=== PATIENT | female | born 1960 | race Caucasian/White ===

== ENCOUNTER → 2021-01-20 08:26 | Outpatient (CLI) | payer BC, SELFPAY ==
--- NOTE | ~2021-01-20 | CT_ITS ---
EXAMINATION: CT brain wo con DATE: 01/20/2021 09:11 INDICATION: Head injury. Headache. TECHNIQUE: Computed tomography (CT) of the head was performed without intravenous contrast. The mA wa s adjusted according to patient size. Iterative reconstruction technique was employed. The dose-lengt h product was 674.51 mGy-cm. COMPARISON: None FINDINGS: There is no intracranial hemorrhage, acute infarction, or abnormal intracranial mass lesion . The ventricles are normal in size. The orbits are normal. There are fractures of the nasal bones. T here is mild mucosal thickening in the ethmoid sinuses. The mastoid air cells are normal. IMPRESSION: 1. Normal brain. 2. Fractures of the nasal bones. Reviewed, dictated and finalized at location A. 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
== END ==
PROVIDERS: PCP Internal Medicine; Visit Provider Nurse Practitioner Family
DX: S02.2XXA Fracture of nasal bones, initial encounter for closed fracture (principal)
CPT/HCPCS: 70450

== ENCOUNTER → 2021-01-28 12:31 | Outpatient (CLI) | payer BC, SELFPAY ==
--- NOTE | ~2021-01-28 | XR_ITS ---
EXAMINATION: XR hand RT min 3V DATE: 01/28/2021 12:59 INDICATION: Right hand pain TECHNIQUE: Posteroanterior, oblique and lateral views of the right hand were obtained. COMPARISON: None. FINDINGS: Cystic change at the ulnar side of the proximal lunate likely secondary to ulnocarpal impaction given the 2 mm ulnar positive variance. Alignment is otherwise normal. No fracture. Minimal to mild osteoa rthritis at the interphalangeal joints characterized by slight nonuniform joint space narrowing and c omparison tiny marginal osteophytes most prominent at the first interphalangeal and at the distal int erphalangeal joints. No erosions. Soft tissues are unremarkable. IMPRESSION: 1. No acute osseous abnormality. 2. 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 3. Cystic change at the ulnar side of the lunate with 2 mm ulnar positive variance suggesting ulnocar pal impaction. Reviewed, dictated and finalized at location B. IMPRESSION: 1. No acute osseous abnormality. 2. 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 3. Cystic change at the ulnar side of the lunate with 2 mm ulnar positive varia nce suggesting ulnocarpal impaction.
== END ==
PROVIDERS: PCP Internal Medicine; Visit Provider Internal Medicine
DX: S69.91XA Unspecified injury of right wrist, hand and finger(s), initial encounter (principal); M18.11 Unilateral primary osteoarthritis of first carpometacarpal joint, right hand
CPT/HCPCS: 73130

== ENCOUNTER 2021-09-30 14:05 | Emergency (ER) | payer BC, SELFPAY ==
--- NOTE | ~2021-09-30 | CT_ITS ---
EXAMINATION: CT abdomen pelvis wo con DATE: 09/30/2021 15:50 INDICATION: Hematuria, dysuria TECHNIQUE: Computed tomography (CT) of the abdomen and pelvis was performed without intravenous contr ast. Automated exposure control and iterative reconstruction technique were employed. Exam dose: 177 .21 mGy-cm total exam DLP. COMPARISON: None. FINDINGS: Peripheral left lower lobe calcified pulmonary granuloma. The lung bases are clear of infil trate or consolidation. Normal heart size. No pericardial or pleural effusion. Small sliding hiatal hernia. No hepatic space-occupying mass lesion is detected. There is heterogeneous density of the gallbladder contents; cholelithiasis is not excluded. Consider gallbladder ultrasound for more sensitive evaluation of the gallbladder if clinically appropriate. No gallbladder wall thickening or pericholecystic fluid or fat stranding. No bile duct or pancreatic du ct dilatation. Normal splenic size. No pancreatic mass lesion or calcification. Normal morphology of the adrenal glands. No renal mass lesion is noted on this limited noncontrast examination. Moderately prominent extrarena l pelves. No ureteral calculus or hydroureteronephrosis is evident. The urinary bladder, uterus and adnexal are as are unremarkable. Normal caliber of the abdominal aorta. No intraperitoneal or retroperitoneal or pelvic mass lesion or adenopathy or ascites. Diverticulosis of the sigmoid colon; no CT evidence of diverticulitis. Normal appendix. No bowel obstruction, bowel wall thickening, pneumatosis or intraperitoneal free air . Small fat-containing umbilical hernia. There are no suspicious osteolytic or osteoblastic lesions. IMPRESSION: Small sliding hiatal hernia Cannot exclude cholelithiasis; consider gallbladder ultrasound for this purpose as clinically appropr iate Diverticulosis of sigmoid colon; no CT evidence of diverticulitis No urolithiasis or urinary tract obstruction is detected Reviewed, dictated and finalized at [facility]. Reviewed, dictated and finalized at location A. 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
[2021-09-30 14:23] VITALS: BP 147/83; PULSE 100; RESP 14; TEMP 37.1; O2SAT 100
[2021-09-30 14:36] LABS: Basophils Absolute Auto 0.1 K/mm3 (0.0-0.1); Basophils Percent Auto 0.6 % (0.2-1.2); Eosinophils Absolute Auto 0.1 K/mm3 (0-0.3); Eosinophils Percent Auto 0.6 % (0-4.4); Hematocrit 42.4 % (37.0-47.0); Hemoglobin 13.8 g/dL (12.0-15.0); Immature Granulocyte Absolute 0.03 K/mm3 (0.00-0.031); Immature Granulocyte Percent A 0.2 % (0-0.5); Lymphocytes Absolute Auto 1.04 K/mm3 (0.9-3.2); Lymphocytes Percent Auto 8.4 % (18.3-44.2); Mean Corpuscular HGB Conc 32.5 g/dl (32-36); Mean Corpuscular Hemoglobin 30.7 pg (26-34); Mean Corpuscular Volume 94.2 fl (80-100); Mean Platelet Volume 9.1 fl (7.4-10.4); Monocytes Absolute Auto 0.7 K/mm3 (0.1-0.6); Monocytes Percent Auto 5.7 % (2.6-8.5); Neutrophils Absolute Auto 10.5 K/mm3 (1.3-6.7); Neutrophils Percent Auto 84.5 % (45.5-73.1); Platelet Count Result 293 k/mm3 (150-375); Red Cell Distribution Width 13.2 % (11.5-14.5); White Blood Count 12.4 K/mm3 (4.5-10.0)
[2021-09-30 14:49] LABS: Alanine Aminotransferase 17 U/L (4-35); Albumin Level 4.8 g/dL (3.5-5.1); Alkaline Phosphatase 55 U/L (38-126); Anion Gap 11 mmol/L (8-16); Aspartate Amino Transferase 26 U/L (14-36); Bilirubin,Total 0.4 mg/dL (0.2-1.3); Blood Urea Nitrogen 7 mg/dL (7-17); Calcium 9.4 mg/dL (8.4-10.2); Carbon Dioxide 23 mmol/L (22-30); Chloride 106 mmol/L (98-107); Estimated CRCL calculation 68 ml/min; Estimated Glomerular Filt Rate > 60; Glucose 106 mg/dL (65-110); Potassium 3.5 mmol/L (3.4-5.0); Sodium 140 mmol/L (137-145)
[2021-09-30 14:52] LABS: Add Urine Microscopic? YES; Appearance Urine Cloudy (Clear); Bilirubin Urine Negative (Negative); Blood Urine 3+ (Negative); Color Urine Yellow (Yellow); Glucose Urine UA Negative (Negative); Ketones Urine Negative (Negative); Leukocyte Esterase Ur 3+ LEU/UL (Negative); Nitrate Urine Negative (Negative); Protein Urine 1+ mg/dL (Negative); RBC Urine 0-2 /hpf (0-2); Urobilinogen Urine Negative mg/dL (<2.0)
[2021-09-30 14:54] VITALS: BP 166/88; PULSE 85; TEMP 37.8; O2SAT 100
[2021-09-30 14:56] LABS: Specific Grav Ur 1.002 (1.001-1.035)
--- NOTE | 2021-09-30 15:54 | ED.FEMALEGU ---
HPI - Female Genitourinary General Chief complaint: Urogenital-Female Stated complaint: poss kidney stone Time Seen by Provider: 09/30/21 14:53 Source: patient and RN notes reviewed Mode of arrival: ambulatory Limitations: no limitations History of Present Illness HPI Narrative: This is a 61 year old female who presents for evaluation of possible kidney stone. PAtient reports today she develop burning with urinary and increased urinary frequency. She also reports passing blood in her urine. She is now developing lower abdominal pain with nausea. She is concerned that she may have a kidney stone. She also has been having subjective fever and she has low grade fever in ER. She denies history of vomiting, back pain. She has not taken anything for her symptoms. Related Data Allergies Allergy/AdvReac Type Severity Reaction Status Date / Time erythromycin base Allergy Unknown Verified 11/18/17 21:20 tetracycline Allergy Unknown Verified 11/18/17 21:20 Review of Systems Review of Systems: All systems reviewed & are unremarkable except as noted in HPI and below PMFSH Past Medical History Medical History (Updated 09/30/21 @ 16:43 by Cele Burnett MD) GERD (gastroesophageal reflux disease) Surgical History Surgical History (Updated 09/30/21 @ 16:39 by Cele Burnett MD) H/O section Social History Social History (Updated 09/30/21 @ 16:40 by Cele Burnett MD) Smoking status: Never smoker Exam Const: General: no acute distress and alert Orientation/consciousness: patient oriented x3 Eyes: EOM: EOMs intact bilaterally Chest: Chest palpation & inspection: normal inspection of the chest Resp: Effort & Inspection: normal respiratory effort and no retractions Auscultation: clear to auscultation bilaterally Cardio: Rate: regular rate Rhythm: regular rhythm Heart sounds: no murmurs GI: GI Palp: Yes Soft to palpation, No Tenderness to palpation present (GI) and No Guarding due to palpation present (GI) Auscultation: normal bowel sounds : General: Yes no CVA tenderness Skin: General skin exam: normal color Rashes: no rashes Neuro: General: patient oriented x3, moves all extremities and CN's II-XI intact bilaterally Psych: Mental Status: mental status grossly normal Affect: normal affect Course Reevaluation(s) Reevaluation #1: I Discussed labs with patient and CT. patient is symptomatic although UA is not impressive. Ct scan did not show kidney stone so she will be discharged with antibiotics. I Also discussed gallstones possibly seen on CT . Date: 09/30/21 Time: 16:41 Vital Signs Vital signs: Vital Signs Temperature 98.7 F 09/30/21 14:23 Pulse Rate 100 09/30/21 14:23 Respiratory Rate 14 09/30/21 14:23 Blood Pressure 147/83 H 09/30/21 14:23 Pulse Oximetry 100 09/30/21 14:23 Temperature 99.1 F 09/30/21 16:59 Pulse Rate 85 09/30/21 14:54 Respiratory Rate 14 09/30/21 14:23 Blood Pressure 166/88 H 09/30/21 14:54 Pulse Oximetry 100 09/30/21 14:54 MDM - Female Genitourinary Lab Data Attestation: I reviewed the patient's lab results. Result diagrams: 09/30/21 14:28 09/30/21 14:28 Labs: Lab Results 09/30/21 09/30/21 09/30/21 Range/Units 14:28 14:28 14:28 WBC 12.4 H (4.5-10.0) K/mm3 RBC 4.50 (4.2-5.4) M/mm3 Hgb 13.8 (12.0-15.0) g/dL Hct 42.4 (37.0-47.0) % MCV 94.2 (80-100) fl MCH 30.7 (26-34) pg MCHC 32.5 (32-36) g/dl RDW 13.2 (11.5-14.5) % Plt Count 293 (150-375) k/mm3 MPV 9.1 (7.4-10.4) fl Immature Gran % (Auto) 0.2 (0-0.5) % Neut % (Auto) 84.5 H (45.5-73.1) % Lymph % (Auto) 8.4 L (18.3-44.2) % Chambers % (Auto) 5.7 (2.6-8.5) % Eos % (Auto) 0.6 (0-4.4) % Baso % (Auto) 0.6 (0.2-1.2) % Lymph # (Auto) 1.04 (0.9-3.2) K/mm3 Chambers # (Auto) 0.7 H (0.1-0.6) K/mm3 Eos # (Auto) 0.1 (0-0.3) K/mm3 Baso # (Auto)
[2021-09-30] MEDS: ACETAMINOPHEN 500 MG TABLET 1000 MG PO (16:12)
[2021-09-30] MEDS: CEPHALEXIN 500 MG CAPSULE PO (16:56)
[2021-09-30 16:59] VITALS: TEMP 37.3
== END 2021-09-30 17:00 | disposition home or self-care (01) ==
PROVIDERS: Emergency Medicine; Emergency Provider General Practice; PCP Internal Medicine
DX: N39.0 Urinary tract infection, site not specified (principal); K21.9 Gastro-esophageal reflux disease without esophagitis
CPT/HCPCS: 36415; 74176; 80053; 81001; 85025; 87077; 87086; 87186; 99284; A9270

== ENCOUNTER 2022-10-14 04:08 | Emergency (ER) | payer OTHER, SELFPAY ==
[2022-10-14 04:15] VITALS: BP 177/89; PULSE 72; RESP 18; TEMP 36.6; O2SAT 100
--- NOTE | 2022-10-14 05:23 | ED.GENADULT ---
HPI - General Adult General Chief complaint: Recheck/Abnormal Lab/Rx Stated complaint: elevated bp Time Seen by Provider: 10/14/22 04:55 History of Present Illness HPI narrative: This is a 62-year-old female presenting ED with chief complaint of elevated blood pressures. The patient has been taking her blood pressure at home repeatedly throughout the day. She notes that she has had multiple elevated blood pressure readings approximately 170/90. She notice that when she takes them she becomes anxious and then read takes them and her blood pressure increases. She is currently asymptomatic and is not describing chest pain, difficulty breathing, abdominal pain, numbness tingling or weakness a extremity. Patient admits having history of anxiety. She would like to follow-up with her primary care physician tomorrow. Related Data Allergies Allergy/AdvReac Type Severity Reaction Status Date / Time erythromycin base Allergy Unknown Verified 11/18/17 21:20 tetracycline Allergy Unknown Verified 11/18/17 21:20 Review of Systems Review of Systems: CONSTITUTIONAL: Denies night sweats. EYES: No eye pain ENT: Denies rhinorrhea CARDIOVASCULAR: Denies palpitations RESPIRATORY: Denies hemoptysis GASTROINTESTINAL: Denies hematemesis GENITOURINARY: Denies hematuria. SKIN: Denies rash MUSCULOSKELETAL: Denies myalgia. NEUROLOGIC: Denies weakness. PSYCHIATRIC: Denies delusions PMFSH Past Medical History Medical History GERD (gastroesophageal reflux disease) Surgical History Surgical History H/O section Social History Social History Smoking status: Never smoker Exam Narrative: APPEARANCE: No apparent distress. Head: atraumatic. EYES: EOMI, NOSE: Atraumatic NECK: Trachea midline RESPIRATORY: No increased rate of breathing, clear to auscultation bilaterally CARDIOVASCULAR: RRR, ABDOMINAL: Non-distended, no guarding or rebound MUSCULOSKELETAl: No obvious deformities NEURO: Alert. Cranial nerves 2-12 grossly intact. Sensation light touch, motor function cerebellar function intact for 4 extremities. Gait exam was normal. SKIN:: Warm, dry. Normal color PSYCHIATRIC: Normal affect Course Vital Signs Vital signs: Vital Signs Temperature 97.8 F 10/14/22 04:15 Pulse Rate 72 10/14/22 04:15 Respiratory Rate 18 10/14/22 04:15 Blood Pressure 177/89 H 10/14/22 04:15 Pulse Oximetry 100 10/14/22 04:15 Oxygen Delivery Room Air 10/14/22 04:15 Temperature 97.8 F 10/14/22 04:15 Pulse Rate 72 10/14/22 04:15 Respiratory Rate 18 10/14/22 04:15 Blood Pressure 177/89 H 10/14/22 04:15 Pulse Oximetry 100 10/14/22 04:15 Oxygen Delivery Room Air 10/14/22 04:15 Medical Decision Making MDM Narrative Medical decision making narrative: This is a very pleasant 62-year-old female presenting to ED with elevated blood pressure. Patient has a history of anxiety and has been concerned about her blood pressure in general. She is currently asymptomatic. She would like to follow-up with her primary care physician in the next 1-2 days which I believe is an appropriate decision. Patient will be discharged. She can return emergency department if she develops chest pain, difficulty breathing, numbness tingling weakness to any extremity. Vital Signs Vital Signs: Vital Signs Temperature 97.8 F 10/14/22 04:15 Pulse Rate 72 10/14/22 04:15 Respiratory Rate 18 10/14/22 04:15 Blood Pressure 177/89 H 10/14/22 04:15 Pulse Oximetry 100 10/14/22 04:15 Oxygen Delivery Room Air 10/14/22 04:15 Temperature 97.8 F 10/14/22 04:15 Pulse Rate 72 10/14/22 04:15 Respiratory Rate 18 10/14/22 04:15 Blood Pressure 177/89 H 10/14/22 04:15 Pulse Oximetry 100 10/14/22 04:15 Oxygen Delivery Room Air 10/14/22 04:15
== END 2022-10-14 05:53 | disposition home or self-care (01) ==
PROVIDERS: Emergency Provider Emergency Medicine; PCP Internal Medicine
DX: I10 Essential (primary) hypertension (principal); F41.9 Anxiety disorder, unspecified; K21.9 Gastro-esophageal reflux disease without esophagitis
CPT/HCPCS: 99281

== ENCOUNTER 2024-05-18 11:03 | Emergency (ER) | payer OTHER, SELFPAY ==
--- NOTE | ~2024-05-18 | CT_ITS ---
EXAMINATION: CT brain wo con DATE: 05/18/2024 12:28 INDICATION: Head pressure. Lack of coordination. Fall. TECHNIQUE: Computed tomography (CT) of the head was performed without intravenous contrast. The mA wa s adjusted according to patient size. Iterative reconstruction technique was employed. The dose-lengt h product was 605.33 mGy-cm. COMPARISON: Head CT 01/20/2021 FINDINGS: There is no intracranial hemorrhage, acute infarction, or abnormal intracranial mass lesion . The ventricles are normal in size. There is mild mucosal thickening in the ethmoid sinuses. The mas toid air cells are normal. IMPRESSION: 1. Normal brain. Reviewed, dictated and finalized at location A. IMPRESSION: 1. Normal brain.
--- NOTE | 2024-05-18 12:09 | PC.NURSE ---
Pt c/o right parietal head pain after falling backwards 4 days ago. Denies visual changes. Pupils equal & reactive. Pt reports of sensation of pressure & soreness to touch to area.
--- NOTE | 2024-05-18 12:41 | ED.FALL ---
HPI - Fall General Chief Complaint: Fall Stated Complaint: fall on Tuesday, hit head Time Seen by Provider: 05/18/24 12:01 History of Present Illness HPI Narrative: Patient is a 64-year-old female who presents to the emergency department this afternoon complaining of some right-sided head pressure. Patient states that on Tuesday she fell backwards after tripping and is not sure if she hit the back of her head on a dresser or on the ground. Patient states that she felt but continued to have some head pressure worse on the right side. Patient initially thought that this was due to a mild concussion, however, since her symptoms persisted she wanted to come here and be further evaluated due to concern for a head. Patient discussed this case with her primary care physician who prompted her to come to the ED for a CT head. She denies any additional symptoms or concerns at this time. Related Data Home Medications Medication Instructions Recorded Confirmed alprazolam 0.25 mg tablet 0.25 mg PO PRN anxiety 01/21/23 01/21/23 pantoprazole 20 mg tablet,delayed 20 mg PO 01/21/23 01/21/23 release Allergies Allergy/AdvReac Type Severity Reaction Status Date / Time erythromycin base Allergy Unknown Nausea Verified 01/21/23 08:29 tetracycline Allergy Unknown Nausea Verified 01/21/23 08:29 Review of Systems Review of Systems: All systems are reviewed and are negative unless stated otherwise in the HPI. [facility] Past Medical History Medical History GERD (gastroesophageal reflux disease) Surgical History Surgical History H/O section Social History Social History Smoking status: Never smoker Lack of Transportation: No Lack of Food: Never True Current Housing: I Have Housing Concerned About Future Housing: No Difficulty Paying Gas/Electric Bills: No Difficulty Paying for Meds: No Currently Unemployed: No Education: Trade/Vocational Certificate Difficulty w/ Childcare or Family Care: No Exam Narrative: General: Alert, awake, afebrile, in no acute distress. HEENT: PERRL, no rhinorrhea, no post nasal drip, oropharynx clear. Cardiovascular: Regular rate and rhythm, no murmurs, rubs or gallops, no peripheral edema. Respiratory: Clear to auscultation bilaterally, no tachypnea, no wheezing, no rhonchi, no rubs, no respiratory distress. Abdomen: Soft, nontender, nondistended, no rebound, no guarding, no peritoneal signs. Musculoskeletal: No joint swelling or deformity, normal muscle tone. Skin: No rashes or petechia, no signs of infection. Neurological: Alert and oriented to person, place, and time. Follows all commands. No focal deficits, speech is clear and fluent. MDM - Fall MDM Narrative Medical decision making narrative: The patient was evaluated by myself in the emergency department. History is obtained from patient who is an independent historian and physical exam was performed. External medical records were reviewed at this time. Imaging studies obtained included CT brain without IV contrast which was independently interpreted by me revealing no acute process, which is pending final radiology interpretation. Differential diagnosis considerations include concussion, intracranial hemorrhage and cephalgia. Comorbidities impacting this visit include none. I have evaluated and discussed social determinants of health with the patient that could potentially impact subsequent diagnosis and treatment plans. On repeat assessment of the patient, reevaluation revealed that the patient is doing well and is in no acute distress. Patient symptoms have improved since she arrived to our emergency department. Repeat vital signs were all reviewed and noted to be stable. Differential diagnosis and treatment plan were discussed with the patien
== END 2024-05-18 13:15 | disposition home or self-care (01) ==
LOC: ANHED 12:57
PROVIDERS: Emergency Provider Emergency Medicine; PCP Family Medicine
DX: S09.90XA Unspecified injury of head, initial encounter (principal); K21.9 Gastro-esophageal reflux disease without esophagitis; F41.9 Anxiety disorder, unspecified; Z79.899 Other long term (current) drug therapy; W01.0XXA Fall on same level from slipping, tripping and stumbling without subsequent striking against object, initial encounter
CPT/HCPCS: 70450; 99284

== ENCOUNTER 2024-10-17 13:36 | Outpatient (CLI) | payer OTHER, SELFPAY ==
--- NOTE | ~2024-10-17 | CT_ITS ---
CT of the Abdomen and Pelvis: Indication: Abdominal pain Technique: 2.5 mm axial scans were obtained through the abdomen and pelvis following intravenous adm inistration of 100 cc of Omnipaque 350. Dose reduction technique was used on this scan by utilizing a utomated exposure control and iterative reconstruction technique. The dose-length product (DLP) was 2 83.00 mGy-cm. COMPARISON: 09/30/2021 Findings: Scans through the lung bases demonstrates stable pleural-based nodule at the left lung bas e (axial image 31). The liver, spleen, pancreas, gallbladder, adrenals and kidneys are within normal limits. No evidence of aortic aneurysm. No lymphadenopathy. No bowel obstruction or bowel wall thickening. There is no evidence to suggest acute appendicitis. Images through the pelvis were performed. Urinary bladder unremarkable. No pelvic mass seen. No ascit es. Impression: No acute abnormalities seen. Stable pleural-based nodule left lung base. Reviewed, dictated and finalized at [facility]. NT ACQUISITION ASSOCIATE Impression: No acute abnormalities seen. Stable pleural-based nodule left lung base.
--- NOTE | ~2024-10-17 | CT_ITS ---
CT Scan of the Chest without Contrast: Clinical Indication: Pulmonary nodule Technique: Contiguous sections were acquired throughout the chest without intravenous contrast. Dose reduction technique was used on this scan by utilizing automated exposure control and iterative recon struction technique. The dose-length product (DLP) was 38.84 mGy-cm. COMPARISON: 09/30/2021 Findings: There is no evidence of any significant mediastinal, hilar or axillary lymphadenopathy. The mediastin al soft tissues appear normal. There is no evidence of pleural or pericardial effusion. Stable 7 mm pleural-based nodule left lower lobe. 4 mm left upper lobe pulmonary nodule present (axia l image 49). Images through the upper abdomen reveal no abnormalities. Impression: 4 mm left lower lobe pulmonary nodule, most likely benign. Consider one-year follow-up for a high-ri sk patient. Stable 7 mm left lower lobe pleural-based nodule since 2020. Reviewed, dictated and finalized at [facility]. E GROUP MANAGER Impression: 4 mm left lower lobe pulmonary nodule, most likely benign. Consider one-year fo llow-up for a high-risk patient. Stable 7 mm left lower lobe pleural-based nodule since 2020.
[2024-10-17 14:16] LABS: Estimated Glomerular Filt Rate > 60
== END 2024-10-17 13:37 | disposition home or self-care (01) ==
PROVIDERS: PCP Family Medicine; Visit Provider Family Medicine
DX: R91.1 Solitary pulmonary nodule (principal); R10.822 Left upper quadrant rebound abdominal tenderness; R10.9 Unspecified abdominal pain; Z80.8 Family history of malignant neoplasm of other organs or systems
CPT/HCPCS: 71250; 74177; Q9967

== ENCOUNTER 2025-06-07 07:22 | Outpatient (CLI) | payer MEDICARE, SELFPAY ==
--- NOTE | ~2025-06-07 | DEXA_ITS ---
Bone Density Report Name: FARNAZ LACKEY Age: 65 Sex: Female Ethnicity: White Date of : 1960 Indication: postmenopausal; screening for osteoporosis; height loss; Referring Provider: KRISTOPHER, ELDER Caceres Study: Bone densitometry was performed. Exam Date: June 07, 2025 Accession number: [id number] Bone Density: Region BMD T-score Z-score Classification AP Spine(L1-L4) 0.742 -2.8 -0.9 Osteoporosis Femoral Neck (Left) 0.544 -2.7 -1.2 Osteoporosis Total Hip (Left) 0.628 -2.6 -1.3 Osteoporosis Femoral Neck (Right) 0.574 -2.5 -0.9 Osteoporosis Total Hip (Right) 0.662 -2.3 -1.0 Osteopenia Total Hip Mean 0.645 -2.5 -1.2 Osteopenia World Health Organization criteria for BMD impression classify patients as: Normal (T-score at or above -1.0), Osteopenia (T-score between -1.0 and -2.5), or Osteoporosis (T-score at or below -2.5). 10-year Fracture Risk: FRAX not reported because: Some T-score for Spine Total or Hip Total or Femoral Neck at or below -2.5 Treated for osteoporosis Clinical Information Provided by Patient: Is being treated for osteoporosis Has used the following medications: Prolia (i.e. denosumab) Patient maximum height was 63 Menopause Age: 47 No regular weight bearing exercise Drinks caffeinated beverages Onset of menses at age 11 Number of children 2 Impression: The patient has osteoporosis, based on the Total Spine T-score. Discussion: It is important to ask patients whether they are taking their medications and to encourage continued and appropriate compliance with their osteoporosis therapies to reduce fracture risk. It is also important to review their risk factors and encourage appropriate calcium and vitamin D intakes, exercise, fall prevention and other lifestyle measures. Follow-Up: Consider a repeat BMD and Vertebral Fracture Assessment (VFA) exam in 2 years or sooner if medically necessary, to reassess this patient's status. Reported by: MARÍA on 06/07/2025 8:01:00 AM. Reviewed, dictated and finalized at location A.
--- OUTSIDE RECORDS SUMMARY | 2025-06-07 07:29 | XMS_ITS | Encounter Summary ---
Author Organization [facility] Healthcare Address [address] [place] [address] Care Team Providers Care Bucket Turner Name Role Phone Ang Cunningham MD Primary Care Provider [phone] Horacio Adams MD Primary Care Provider Jose Antonio Bell MD Primary Care Provider [phone] Klever Pizarro MD Unavailable Gris Haque DO Unavailable [phone] Reason for Referral * Diagnostic Imaging (Routine) - Closed Specialty Diagnoses / Procedures Referred By Contac t Referred To Contact Diagnoses Liver lesion Procedures US [facility] Karla Miramontes DO Phone: tel: fax: [address] [address] Referral ID Status Reason Start Date Expiration Date Visits Re quested Visits Authorized [id number] Closed 08/01/2018 02/10/2020 1 1 Encounter Details Date Type Department Care Team (Late st Contact Info) Description 08/01/2018 Community Orders [facility] EpicCare Link Karla Miramontes DO [address] [facility] [address] [place] [address] Liver lesion (Primary Dx) Social History Tobacco Use Types Packs/Day Years Used Date Smoking Tobacco: Never Assessed Comments Unknown Sex and Gender Information Value Date Recorded Sex Assigned at Not on file 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 1.1 x 0.9 cm lesion within hepatic segment 2 whose appearance is not typical for a hemangioma. In the absence of a history of neoplasm, lesion may represent focal nodular hyperplasia. The appearance is not typical for an adenoma nor is it typical on the CT. This lesion can be followed with repeat ultrasound, or MRI if a definitive diagnosis is desired. 2. The liver is otherwise normal in echogenicity and contour. A simple 5 mm hepatic cyst is noted within the right liver. Electronically signed by: Ann Crooks M.D. Narrative 08/07/2018 2:06 PM CDT EXAMINATION: LIMITED ABDOMINAL SONOGRAM HISTORY: 58-year-old woman with incidental hepatic lesions identified on recent CT. Patient reports a family history of pancreatic cancer. COMPARISON: CT abdomen dated 07/28/2018 FINDINGS: Liver: The liver is normal in size. The echotexture is normal. The echogenicity is normal. There is no surface nodularity. A 5 x 4 mm simple hepatic cyst is noted within the right liver, corresponding to the segment 7/[address] prior [address]. A subtle 1.1 x 0.9 cm lesion within hepatic segment 2 is noted that corresponds to the homogeneous hyperenhancing lesion on the prior CT. This lesion is hypoechoic to near isoechoic with no internal vascularity on color Doppler Gallbladder: The gallbladder is normal in size. There are no stones or sludge within the gallbladder. There is no gallbladder wall thickening. The gallbladder wall measures 3 mm. Bile Duct: There is no intrahepatic bile duct dilatation. The common duct measures 4 mm, 4 mm, and 2 mm in the proximal, mid and distal segments respectively. Right Kidney: There is no hydronephrosis in the visualized portions of the right kidney. Pancreas: The visualized portions of the pancreas are normal. Inferior vena cava: The proximal IVC is normal. Procedure Note Ann Crooks MD - 08/07/2018 EXAMINATION: LIMITED ABDOMINAL SONOGRAM HISTORY: 58-year-old woman with incidental hepatic lesions identified on recent CT. Patient reports a family history of pancreatic cancer. COMPARISON: CT abdomen dated 07/28/2018 FINDINGS: Liver: The liver is normal in size. The echotexture is normal. The echogenicity is normal. There is no surface nodularity. A 5 x 4 mm simple hepatic cyst is noted within the right liver, corresponding to the segment 7/[address] seen [address] prior [address]. A subtle 1.1 x 0.9 cm lesion within hepatic segment 2 is noted that corresponds to the homogeneous hyperenhancing lesion on the prior CT. This lesion is hypoechoic to near isoechoic with no internal vascularity on color Doppler Gallbladder: The gallbladder is normal in size. There are no stones or sludge within the gallbladder. There is no gallbladder wall thickening. The gallbladder wall measures 3 mm. Bile Duct: There is no intrahepatic bile duct dilatation. The common duct measures 4 mm, 4 mm, and 2 mm in the proximal, mid and distal segments respectively. Right Kidney: There is no hydronephrosis in the visualized portions of the right kidney. Pancreas: The visualized portions of the pancreas are normal. Inferior vena cava: The proximal IVC is normal. IMPRESSION: 1. 1.1 x 0.9 cm lesion within hepatic segment 2 whose appearance is not typical for a hemangioma. In the absence of a history of neoplasm, lesion may represent focal nodular hyperplasia. The appearance is not typical for an adenoma nor is it typical on the CT. This lesion can be followed with repeat ultrasound, or MRI if a definitive diagnosis is desired. 2. The liver is otherwise normal in echogenicity and contour. A simple 5 mm hepatic cyst is noted within the right liver. Electronically signed by: Ann Crooks M.D. us Karla Miramontes DO [facility] [place] PROCEDURES Final Result documented in this encounter Visit Diagnoses Diagnosis Liver lesion- Primary Other specified disorders of liver Liver lesion Other specified disorders of liver documented in this encounter Additional Health Concerns Infection Onset Date Last Indicated Resolved Time COVID: Suspected 06/05/2022 06/05/202206/05/2022 11:59 AM CDT COVID: Suspected 08/04/2022 08/04/2022 08/04/2022 9:19 AM CDT COVID: Suspected 08/04/2022 08/04/2022 08/04/2022 5:31 PM CDT COVID: Suspected 08/30/2022 08/30/2022 08/30/2022 10:33 PM CDT COVID: Suspected 10/11/2022 10/11/2022 10/11/2022 12:04 PM AMERICANIZATION TEACHER COVID: Suspected 10/11/2022 10/11/2022 10/11/2022 4:10 PM AMERICANIZATION TEACHER COVID: Suspected 10/08/2024 10/08/2024 10/08/2024 9:16 AM AMERICANIZATION TEACHER documented as of this encounter Care Teams Bucket Turner Relationship Specialty Start Date End Date Ang Cunningham MD [address] [facility] [address] [place] [address] PCP - General 01/21/17 10/16/20 Horacio Adams MD [address] [facility] [address] [place] [address] PCP - General Internal Medicine 10/17/20 03/28/24 Jose Antonio Bell MD [address] [place] [address] PCP - General Family Medicine 03/29/24 Klever Pizarro MD [address] [facility] [address] [place], [place] [id number] Referring Physician Gastroenterology 03/29/24 Gris Haque DO [address] [facility] [address] [place] [phone] Consulting Physician Obstetrics and Gynecology 03/29/24 documented as of this encounter
--- OUTSIDE RECORDS SUMMARY | 2025-06-07 07:29 | XMS_ITS | Encounter Summary ---
Author Organization [facility] Healthcare Address [address] [place] [address] Care Team Providers Care Process Development Technician Name Role Phone Ang Cunningham MD Primary Care Provider [phone] Horacio Adams MD Primary Care Provider [phone] Jose Antonio Bell MD Primary Care Provider [phone] Klever Pizarro MD Unavailable Gris Haque DO Unavailable [phone] Reason for Referral * Diagnostic Imaging (Routine) - Closed Specialty Diagnoses / Procedures Referred By Contangela scales Referred To Contact Radiology Diagnoses Lung nodule Procedures CT Chest WO Contrast Horacio Adams MD [address] [facility] [address] [place] [address] Phone: tel: fax: [address] [address] Referral ID Status Reason Start Date Expiration Date Visits Re quested Visits Authorized [id number] Closed 05/14/2020 11/23/2021 1 1 Encounter Details Date Type Department Care Team (Late st Contact Info) Description 05/14/2020 Orders Only Internal Medicine Horacio Adams MD [address] [facility] [address] [place] [address] Lung nodule (Primary Dx) Social History Tobacco Use Types Packs/Day Years Used Date Smoking Tobacco: Never Smokeless Tobacco: Never Alcohol Use Standard Drinks/Week Comments Yes 0 (1 standard drink = 0.6 oz pur e alcohol) 2x/week Comments Unknown Sex and Gender Information Value Date Recorded Sex Assigned at Not on file 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 The left lower lobe pulmonary nodule associated with the pleura is stable dating back to 07/31/2018. Dictated by: Parker Bhardwaj M.D. The radiology attending physician has personally reviewed this study, and had reviewed and/or edited this written report and agrees with it. Electronically signed by: Eddie Singer M.D., MPH Narrative 05/27/2020 2:55 PM CDT EXAMINATION: CT of the Chest without intravenous contrast HISTORY: Pulmonary nodule follow-up TECHNIQUE: Transaxial computed tomography of the chest was performed without intravenous contrast according to the low-dose CT protocol. COMPARISON: A prior CT dated 06/13/2019. FINDINGS: There is biapical pleural parenchymal scarring. There is no pneumothorax, pulmonary edema, pneumonic consolidation, or pleural effusion. Mild bronchial wall thickening likely represent chronic bronchitis. 5 mm pulmonary nodule in the left upper lobe on slice position 109.5 is stable. 3 mm pulmonary nodule in the left oblique fissure is stable on slice position 37.5. 6 mm pulmonary nodule in the left lung base associated with the pleura on slice position -31.[address] abdomen dated 07/31/2018 where it could be seen on lung bases. Mild groundglass is noted within the medial basal segment of the right lower lobe and may indicate some mild fibrosis. The visualized thyroid gland is normal. There is no supraclavicular, axillary, mediastinal or hilar lymphadenopathy. Heart size is normal with no pericardial effusion. There is a small hiatal hernia. The visualized low-dose evaluation of the upper abdomen appears unremarkable. Procedure Note Eddie Singer MD - 05/27/2020 EXAMINATION: CT of the Chest without intravenous contrast HISTORY: Pulmonary nodule follow-up TECHNIQUE: Transaxial computed tomography of the chest was performed without intravenous contrast according to the low-dose CT protocol. COMPARISON: A prior CT dated 06/13/2019. FINDINGS: There is biapical pleural parenchymal scarring. There is no pneumothorax, pulmonary edema, pneumonic consolidation, or pleural effusion. Mild bronchial wall thickening likely represent chronic bronchitis. 5 mm pulmonary nodule in the left upper lobe on slice position 109.5 is stable. 3 mm pulmonary nodule in the left oblique fissure is stable on slice position 37.5. 6 mm pulmonary nodule in the left lung base associated with the pleura on slice position -31.[address] abdomen dated 07/31/2018 where it could be seen on lung bases. Mild groundglass is noted within the medial basal segment of the right lower lobe and may indicate some mild fibrosis. The visualized thyroid gland is normal. There is no supraclavicular, axillary, mediastinal or hilar lymphadenopathy. Heart size is normal with no pericardial effusion. There is a small hiatal hernia. The visualized low-dose evaluation of the upper abdomen appears unremarkable. IMPRESSION: Stable pulmonary nodules. The left lower lobe pulmonary nodule associated with the pleura is stable dating back to 07/31/2018. Dictated by: Parker Bhardwaj M.D. The radiology attending physician has personally reviewed this study, and had reviewed and/or edited this written report and agrees with it. Electronically signed by: Eddie Singer M.D., MPH Horacio Adams MD IMG CT PROCEDURES Final Resul t documented in this encounter Visit Diagnoses Diagnosis Lung nodule- Primary Other diseases of lung, not elsewhere classified Lung nodule Other diseases of lung, not elsewhere classified documented in this encounter Additional Health Concerns Infection Onset Date Last Indicated Resolved Time COVID: Suspected 06/05/2022 06/05/2022 06/05/2022 11:59 AM CDT COVID: Suspected 08/04/2022 08/04/2022 08/04/2022 9:19 AM CDT COVID: Suspected 08/04/2022 08/04/2022 08/04/2022 5:31 PM CDT COVID: Suspected 08/30/2022 08/30/2022 08/30/2022 10:33 PM CDT COVID: Suspected 10/11/2022 10/11/2022 10/11/2022 12:04 PM LUMBER PULLER COVID: Suspected 10/11/2022 10/11/2022 10/11/2022 4:10 PM LUMBER PULLER COVID: Suspected 10/08/2024 10/08/2024 10/08/2024 9:16 AM LUMBER PULLER documented as of this encounter Care Teams Process Development Technician Relationship Specialty Start Date End Date Ang Cunningham MD [address] [facility] [address] [place] [address] PCP - General 01/21/17 10/16/20 Horacio Adams MD [address] [facility] [address] [place] [address] PCP - General Internal Medicine 10/17/20 03/28/24 Jose Antonio Bell MD [address] [place] [address] PCP - General Family Medicine 03/29/24 Klever Pizarro MD [address] [facility] [address] [place], [place] [phone] Referring Physician Gastroenterology 03/29/24 Gris Haque DO [address] [facility] [address] [place] [phone] Consulting Physician Obstetrics and Gynecology 03/29/24 documented as of this encounter
--- OUTSIDE RECORDS SUMMARY | 2025-06-07 07:30 | XMS_ITS | Encounter Summary ---
Author Organization [facility] Address 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 Legal Sex Female 5:17 AM SOCIAL WORK MANAGER Gender Identity Female 09/17/2024 8:49 PM SOCIAL WORK MANAGER Sexual Orientation Not on file documented as of this encounter Plan of Treatment Not on file documented as of this encounter Procedures Procedure Name Priority Date/Time Associated Diagnosis Comments MAMMO SCREEN BILAT W OR WO CAD Routine 01/26/2008 9:48 AM CDT documented in this encounter Results * MAMMO DIGITAL SCREEN BILAT (01/26/2008 9:48 AM CDT) Anatomical Region Laterality Modality Breast Bilateral Other 01/26/2008 9:48 AM CDT Narrative 01/26/2008 11:01 AM CDT [facility] [address] [place], [place] [address] Admit Date: 01/26/2008 DANITZA LACKEY Sex: F Admit Prov: SAMEER SHETH Date: 1960 Primary Care Prov: RED SALAZAR CMRN: [id number] Room: ROMEL N: [id number] IMAGING SERVICES Ordering Prov: SAMEER SHETH Accession Number: [id number] Interpretation DIGITAL SCREENING MAMMOGRAM WITH COMPUTER-ASSISTED DIAGNOSIS Findings: The breasts were imaged with digital mammographic technique. The breast tissue is heterogeneously dense bilaterally. This lowers the sensitivity of mammography. No significant mass, malignant calcification or architectural distortion is noted. The CAD system does not highlight any suspicious areas. Summary: No mammographic evidence of malignancy. There has been no significant change from prior study of 12/21. Recommendations: Bilateral yearly screening mammogram is recommended. Assessment BIRADS: 1-Negative Recommendation: Normal interval follow-up Dictated by: MARIAM AGRVIN Electronically signed by: MARIAM GARVIN 01/26/2008 11:01 Transcribed: 01/26/2008 11:01 CXZ Procedure Note Mariam Garvin - 01/26/2008 [place] [address] [place], [place] [address] Admit Date: 01/26/2008 DANITZA LACKEY Sex: F Admit Prov: SAMEER SHETH Date: 1960 Primary Care Prov: RED SALAZAR Fernando CMRN: [id number] Room: ROMEL N: [id number] IMAGING SERVICES Ordering Prov: SAMEER SHETH Interpretation DIGITAL SCREENING MAMMOGRAM WITH COMPUTER-ASSISTED DIAGNOSIS Findings: The breasts were imaged with digital mammographictechnique. The breast tissue is heterogeneously dense bilaterally. This lowers the sensitivity of mammography. No significant mass, malignantcalcification or architectural distortion is noted. The CAD system does not highlight any suspicious areas. Summary: No mammographic evidence of malignancy. There has been no significant change from prior study of 12/21. Recommendations: Bilateral yearly screening mammogram is recommended. Assessment BIRADS: 1-Negative Recommendation: Normal interval follow-up Dictated by: MARIAM GARVIN Electronically signed by: MARIAM GARVIN 01/26/2008 11:01 Transcribed: 01/26/2008 11:01 CXZ us Sameer Sheth Jr., MD MAMMO ORDERABLES Final Res ult documented in this encounter Visit Diagnoses Diagnosis Other screening mammogram documented in this encounter Care Teams Police Sergeant Precinct Relationship Specialty Start Date End Date Jose Antonio Bell MD [address] [place] [address] PCP - General Family Practice 09/19/24 documented as of this encounter
--- OUTSIDE RECORDS SUMMARY | 2025-06-07 07:30 | XMS_ITS | Encounter Summary ---
Author Organization [facility] Address 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 Legal Sex Female 5:17 AM SERVICE WORKER Gender Identity Female 09/17/2024 8:49 PM SERVICE WORKER Sexual Orientation Not on file documented as of this encounter Plan of Treatment Not on file documented as of this encounter Procedures Procedure Name Priority Date/Time Associated Diagnosis Comments MAMMO SCREEN BILAT W OR WO CAD Timed Study 02/14/2009 10:13 AM CDT documented in this encounter Results * MAMMO DIGITAL SCREEN BILAT (02/14/2009 10:13 AM CDT) Anatomical Region Laterality Modality Breast Bilateral Other 02/14/2009 10:1 3 AM CDT Narrative 02/15/2009 11:14 AM CDT [address] [address] Admit Date: 02/14/2009 BETTE LACKEYAlicia Card Sex: F Admit Prov: SAMEER SHETH Date: 1960 Primary Care Prov: RED SALAZAR CMRN: [id number] Room: CONRADMorris N: [id number] IMAGING SERVICES Ordering Prov: SAMEER SHETH Accession Number: [id number] Interpretation BILATERAL FULL FIELD DIGITAL SCREENING MAMMOGRAM WITH CAD. History: Routine Screening. Technique: Full field digital craniocaudal and mediolateral oblique projections of both breasts were obtained. Computer aided diagnosis was performed. Comparison: 01/2008, 12/2006, 10/2005 Breast Parenchymal Composition: Heterogeneously dense, which lowers the sensitivity of mammography. Findings: No suspicious mass, suspicious microcalcifications, or architectural distortion in either breast is identified. Since the prior study, there has been no significant interval change. The computer aided diagnosis detects no significant abnormality. Overall Assessment: BI-RADS category 1: Negative. Recommendation: Annual mammography is recommended. Assessment BIRADS: 1-Negative Recommendation: Normal interval follow-up Dictated by: BETSY ZAZUETA Electronically signed by: BETSY ZAZUETA 02/15/2009 11:13 Transcribed: 02/15/2009 09:03 AMK Procedure Note Betsy Zazueta - 02/15/2009 [facility] [place] [address] [place], [place] [address] Admit Date: 02/14/2009 DANITZA LACKEY Sex: F Admit Prov: SAMEER SHETH Date: 1960 Primary Care Prov: RED SALAZAR CMRN: [id number] Room: CONRADMorris N: [id number] IMAGING SERVICES Ordering Prov: SAMEER SHTEH Interpretation BILATERAL FULL FIELD DIGITAL SCREENING MAMMOGRAM WITH CAD. History: Routine Screening. Technique: Full field digital craniocaudal and mediolateral oblique projections of both breasts were obtained. Computer aided diagnosiswas performed. Comparison: 01/2008, 12/2006, 10/2005 Breast Parenchymal Composition: Heterogeneously dense, which lowersthe sensitivity of mammography. Findings: No suspicious mass, suspicious microcalcifications, or architectural distortion in either breast is identified. Since theprior study, there has been no significant interval change. The computeraided diagnosis detects no significant abnormality. Overall Assessment: BI-RADS category 1: Negative. Recommendation: Annual mammography is recommended. Assessment BIRADS: 1-Negative Recommendation: Normal interval follow-up Dictated by: BETSY ZAZUETA Electronically signed by: BETSY ZAZUETA 02/15/2009 11:13 Transcribed: 02/15/2009 09:03 AMK us Sameer Sheth Jr., MD MAMMO ORDERABLES Final Res ult documented in this encounter Visit Diagnoses Diagnosis Other screening mammogram documented in this encounter Care Teams Nursing Home Administrator Relationship Specialty Start Date End Date Jose Antonio Bell MD [address] [place] [address] PCP - General Family Practice 09/19/24 documented as of this encounter
--- OUTSIDE RECORDS SUMMARY | 2025-06-07 07:30 | XMS_ITS | Continuity of Care Document ---
Author Organization [facility] Address [address] [place] [address] [address] [place] [address] Phone Care Team Providers Care Clinical Informaticist Name Role Phone Ana Maria Calabrese Unavailable Unavailable Advance Directives Directive Yes / No Effective Date File Name No Information Encounters Encounter Description Practice Location Reason(s) For Visit Diagnoses Date Provider Providers Copied on Encounter [facility], [address], [place], [place], [id number], [place] tel:[phone] [facility] No Information [address] Bharati Rodgers. [address], [place], [address], [place]. tel:[phone] Family History Family Member Type Diagnosis Age At Onset No Information Payers Payer name Insurance type Covered democrat ID Authoriza tichely(s) [facility] Commercial CI [id number] Social History Type Description Quantity Date Captured Comments Sex Female Smoking Status No Information Chief Complaint And Reason For Visit No Information Reason For Referral Reason For Referral No Information History Of Present Illness Encounter Date Complaint History Of Prese nt Illness No Information Functional Status Date Functional Assessmen t No Information Instructions Date Instruction Additional Infor mation No Information Assessments Type Assessment Date No Information Patient Care Teams Name Effective Dates (start - stop) Status Members No Information
--- OUTSIDE RECORDS SUMMARY | 2025-06-07 07:30 | XMS_ITS | Encounter Summary ---
Author Organization [facility] Address [address] [place] [address] Care Team Providers Care Body Shop Supervisor Name Role Phone Jose Antonio Bell MD Primary Care Provider Encounter Details Date Type Department Care Team (Latest Contact Info) Description 01/06/2007 Outpatient Historical HIS [facility] Zarate Jr., Destiney Damian MD NO ADDRESS ON FILE Other Screening Mammogram (Primary Dx) Social History Tobacco Use Types Packs/Day Years Used Date Smoking Tobacco: Never Assessed Comments Unknown Sex and Gender Information Value Date Recorded Sex Assigned at Female 09/17/2024 8:49 PM KEG RAISER Legal Sex Female 5:17 AM KEG RAISER Gender Identity Female 09/17/2024 8:49 PM KEG RAISER Sexual Orientation Not on file documented as of this encounter Plan of Treatment Not on file documented as of this encounter Visit Diagnoses Diagnosis Other screening mammogram- Primary documented in this encounter Care Teams Body Shop Supervisor Relationship Specialty Start Date End Date Jose Antonio Bell MD [address] [place] [phone] PCP - General Family Practice 09/19/24 documented as of this encounter
--- OUTSIDE RECORDS SUMMARY | 2025-06-07 07:30 | XMS_ITS | Encounter Summary ---
Author Organization [facility] Address [address] [place] [address] Care Team Providers Care Night Monitor Name Role Phone Brianna Cordova PA-C Primary Care Provider [phone] Eze Engel DO Primary Care Provider + Encounter Details Date Type Department Care Team ([facility] st Contact Info) Description 05/10/2023 [employer] Message Enc [facility] Family & Internal Medicine [address] [phone] [employer] [facility] Provider ct Social History Tobacco Use Types Packs/Day Years Used Date Smoking Tobacco: Never Smokeless Tobacco: Never Alcohol Use Standard Drinks/Week Comments Yes 3.3 (1 standard drink = 0.6 oz p ure alcohol) socaily PHQ-2 Answer Date Recorded Patient Health Questionnaire-2 Score 0 05/09/2023 Comments No Sex and Gender Information Value Date Recorded Sex Assigned at Not on file Legal Sex Female 11:43 AM CDT Gender Identity Not on file Sexual Orientation Not on file documented as of this encounter Plan of Treatment Not on file documented as of this encounter Visit Diagnoses Not on filedocumented in this encounter Care Teams Night Monitor Relationship Specialty Start Date End Date Brianna Cordova PA-C PCP - General PHYSICIAN CONTINUITY WRITER 05/09/23 08/09/23 Eze Engel DO [address] [place] [id number] PCP - General 08/10/23 documented as of this encounter
--- OUTSIDE RECORDS SUMMARY | 2025-06-07 07:30 | XMS_ITS | Clinical Summary ---
Author Organization [facility] Address [address] [place] [address] Care Team Providers Care Rotor Coil Taper Name Role Phone Horacio Adams MD Primary Care Provider [phone] Unknown, Provider Unavailable Unavailable Source Comments [facility],non-owned Affiliates and Associated Physician Practices is amultiple site organization consisting of ambulatory clinics and hospital sitesin [place], [place], [place] and [place]. This disclosure is being madepursuant to the Care Everywhere program and may not contain all information available regarding this patient. Last updated 18.[employer] [facility] Allergies No known active allergies Medications * Be aware that medications may not be up to date on this document. Alwaysverify current medications with the patient. pantoprazole EC (PROTONIX) 20 MG tablet Take 20 mg by mouth once daily Active ALPRAZolam (XANAX) 0.25 MG tablet Take 0.25 mg by mouth 3 times daily as needed for Anxiety Active Social History Tobacco Use Types Packs/Day Years Used Date Smoking Tobacco: Never Smokeless Tobacco: Never Comments No Sex and Gender Information Value Date Recorded Sex Assigned at Not on file Legal Sex Female 3:31 AM CDT Gender Identity Not on file Sexual Orientation Not on file Last Filed Vital Signs Vital Sign Reading Time Taken Comments Blood Pressure 140/82 07/21/2021 2:42 PM CDT Pulse 62 07/21/2021 2:42 PM CDT Temperature 36.6 C (97.9 F) 07/21/2021 2:42 PM CDT Respiratory Rate 16 07/21/2021 2:42 PM CDT Oxygen Saturation 98% 07/21/2021 2:42 PM CDT Inhaled Oxygen Concentration - - Weight 56.7 kg (125 lb) 07/21/2021 2:42 PM CDT Height 160 cm (5' 3) 07/21/2021 2:42 PM CDT Body Mass Index 22.14 07/21/2021 2:42 PM CDT Plan of Treatment Health Maintenance Due Date Last Done Comments BONE DENSITY TESTING 1959 COLOGUARD (AGES 45-75) - COL ON CA SCREENING 1959 COLON MONITORING 1959 COLONOSCOPY - COLON CA SCREENING 1959 CT COLONOGRAPHY - COLON CA SCREENING 1959 Colorectal Cancer Screening 1959 FIT - COLON CA SCREENING 1959 FLEX SIG - COLON CA SCREENING 1959 LIPID TESTING 1959 MAMMOGRAM 1959 HEPATITIS C SCREENING 02/08/1977 DTAP/TDAP/TD VACCINES (1 - Tdap) 1978 PNEUMOCOCCAL VACCINE 50+ (1 of 1 - PCV) 2009 ZOSTER VACCINE (1 of 2) 2009 COVID-19 VACCINE (2 - 2023-2 5 season) 2024 01/20/2021 DEPRESSION SCREENING 11/14/2024 INFLUENZA VACCINE (#1) 2025 Respiratory Syncytial Virus (RSV) Vaccine Pt: or over 60 yrs (1 - 1-dose 75+ series) 2034 HEPATITIS B VACCINE Aged Out No longe r eligible based on patient's age to complete this topic HIB VACCINE Aged Out No longer eligi ble based on patient's age to complete this topic HPV VACCINE Aged Out No longer eligi ble based on patient's age to complete this topic MENINGOCOCCAL (Group B) VACC INE SHARED DECISION-MAKING Aged Out No longer eligibl e based on patient's age to complete this topic MENINGOCOCCAL GROUPS A/C/Y/W VACCINE Aged Out No longer eligible b ased on patient's age to complete this topic Insurance [facility] Address: [address] [address] Care Teams Rotor Coil Taper Relationship Specialty Start Date End Date Horacio Adams MD [address] [phone] PCP - General Internal Medicine 07/21/21 Unknown, Provider [address] [phone] 07/21/21
--- OUTSIDE RECORDS SUMMARY | 2025-06-07 07:30 | XMS_ITS | Encounter Summary ---
Author Organization [facility] Address 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
--- OUTSIDE RECORDS SUMMARY | 2025-06-07 07:30 | XMS_ITS | Referral Summary ---
Author Organization [facility] Address [address] [place] [address] Care Team Providers Care Front End Web Designer Name Role Phone Jose Antonio Bell MD Primary Care Provider [phone] Klever Pizarro MD Unavailable Gris Haque DO Unavailable [phone] Encounters Date Type Department Care Team Description 05/31/2025 Telephone [facility] Primary Care at [address] [phone] Jose Antonio Bell MD Medical Question/Miscellaneous 05/30/2025 Telephone [facility] Medical [facility] Primary Care at [address] [phone] Cheryl Washington MA 05/30/2025 9:15 AM CDT Clinical Support [facility] Medical [facility] Primary Care at [address] [phone] 05/10/2025 7:25 AM CDT - 05/10/2025 11:59 PM CDT Hospital Encounter [facility] Building [address] [id number] Pure hypercholesterolemia; Family history of coronary artery bypass graft Discharge Disposition: Discharge to home or self care 05/07/2025 Telephone [facility] Primary Care at [address] [address] Jose Antonio Bell MD Insurance Referrals 04/26/2025 8:15 AM CDT Clinical Support [facility] Primary Care at [address] [address] Vitamin B12 deficiency (Primary Dx) 04/25/2025 Results Follow-Up [facility] Primary Care at [address] [address] Jose Antonio Bell MD Hepatitis B Surface Antigen Blood, Hepatitis B surface antibody (immune status) Blood, Vitamin B12, Additional followed-up results: 8 04/24/2025 8:58 AM CDT - 04/24/2025 11:59 [place] [address] Need for hepatitis B screening test; Osteopenia, unspecified location; Encounter for vitamin deficiency screening; Screening for thyroid disorder; Pure hypercholesterolemia Discharge Disposition: Discharge to home or self care 04/24/2025 9:00 AM CDT Lab [facility] Outpatient Lab at [address] [phone] 04/24/2025 8:15 AM CDT Office Visit [facility] Primary Care at [address] [address] Jose Antonio Bell MD Pure hypercholesterolemia (Primary Dx); Osteopenia, unspecified location; Screening for thyroid disorder; Gastroesophageal reflux disease with esophagitis without hemorrhage; SSBE (short-segment Rosario's esophagus); Need for hepatitis B screening test; Encounter for vitamin deficiency screening; Family history of coronary artery bypass graft; Pulmonary nodules from Last 3 Months Allergies No known active allergies Medications calcium citrate-vitamin D3 (CITRACAL+D) 315-200 mg-unit per tabletIndicatio ns:Osteoporosis ,gummies(not tabs) Take 2 tablets by mouth 2 (two) times a day Active multivit-min/fe rrous fumarate (MULTI VITAMIN ORAL) Take 1 tablet by mouth daily Active omeprazole (PriLOSEC) 40 mg capsuleIndicati ons:Rosario's esophagus Take 1 capsule (40 mg total) by mouth daily 30 capsule 11 4 10/04/20 25 Active ALPRAZolam (XANAX) 0.25 mg tabletIndicatio ns:anxiety TAKE 1 TABLET(0.25 MG) BY MOUTH DAILY NEEDED FOR ANXIETY 30 tablet 1 4 Active cyanocobalamin (Vitamin B-12) 1,000 mcg/mL injectionIndica tions:Vitamin B12 Deficiency Inject 1 mL (1,000 mcg total) into the muscle as instructed every 30 (thirty) days 3 mL 3 5 Active insulin syringe-needle U-100 (BD Insulin Syringe Ultra-Fine) 1 mL 31 gauge x 03/29 syringeIndicati ons:Vitamin B12 deficiency For monthly vitamin B12 injections 10 each 3 5 Active Hospital, Clinic, or Other Facility Administered Medication Ordered Dose Route Frequency Start Date End Date Status cyanocobalamin (Vitamin B-12) injection 1,000 mcgIndications:Vitamin B12 deficiency 1000 mcg subQ Every 30 days 04/26/2025 Active Active Problems Problem Noted Date Diagnosed Date Vitamin B12 deficiency 04/25/2025 Statin declined 04/24/2025 Administrative encounter 10/04/2024 Assessment & Plan (10/04/2024 9:04 AM DIALS SUPERVISOR): A(n) yearly Essence Enhanced Encounter has been performed today. Danitza Lackey is not up to date on screening tests. She is in need of DEXA, Breast cancer screening, Cholesterol screening, and Hepatitis B screening. She is up to date on needed preventative vaccinations. We discussed healthy lifestyle habits, educational material has been given. Medications reviewed, changes documented as per the medical record and discussed with patient along with risks vs benefits. Specific topics reviewed: drugs, ETOH, and tobacco, importance of regular dental care, importance of regular exercise, importance of varied diet, limit TV, media violence, minimize junk food, and seat belts. Return in 6 months SSBE (short-segment Rosario's esophagus) 024 Encounter for medical examination to establish c are 03/29/2024 Assessment & Plan (03/29/2024 9:32 AM CDT): A(n) initial well visit to establish care has been performed today. Danitza Lackey is not up to date on screening tests. She is in need of Breast cancer screening, hepatitis B screen, Colon cancer screening, Cholesterol screening, and Cervical cancer screening. He is not up to date on needed preventative vaccinations. We discussed healthy lifestyle habits, educational material has been given. Medications reviewed, changes documented as per the medical record and discussed with patient along with risks vs benefits. Return in 6 months Strain of flank 11/17/2022 Assessment & Plan (11/17/2022 9:24 AM DIALS SUPERVISOR): Topical lidocaine patches (on for 12/off for 12) Heat PRN Gentle stretching Will notify us early next week, if not improving will proceed with CT Routine general medical exam ination at a health care facility 10/19/2022 Assessment & Plan (10/19/2022 1:56 PM DIALS SUPERVISOR): Needs Shingrix Tdap due 2031 Current on MMG/WWE Has colo/EGD later this month Encouraged 150 min/weekly of moderate intensity activity Limit 1 EtOH drink/daily Insomnia 10/19/2022 Assessment & Plan (10/19/2022 1:58 PM DIALS SUPERVISOR): Trial trazodone 25mg HS History of colon polyps 08/19/2022 Overview (08/19/2022): Added automatically from request for surgery [id number] Pure hypercholesterolemia 02/24/2022 Assessment & Plan (02/24/2022 8:26 AM CDT): Will recheck fasting, if elevated will need to consider medication given Hx Anxiety 02/24/2022 Assessment & Plan (02/24/2022 8:54 AM CDT): Trial sertraline, start 25mg may increase to 50mg in 1-2 weeks Alprazolam PRN (currently using 1-2x weekly) Allergic rhinitis 07/23/2021 Assessment & Plan (07/23/2021 9:53 AM CDT): Continue flonase Trial singulair nightly Gastroesophageal reflux dise ase with esophagitis without hemorrhage 03/16/2021 Assessment & Plan (03/16/2021 2:39 PM CDT): Increase Protonix to 40mg daily x 6 weeks Osteopenia 12/08/2010 Overview (06/05/2022): Bone mineral density followed by dr. Elliot POLLOCK (mitral valve prolapse) 12/08/2010 Resolved Problems Problem Noted Date Diagnosed Date Resolved Date Right upper quadrant abdominal pain 02/24/2022 10/19/2022 Assessment & Plan (02/24/2022 8:27 AM CDT): RUQ US May increase pantoprazole to BID x 2-3 weeks Palpitations 07/23/2021 10/19/2022 Assessment & Plan (07/23/2021 9:52 AM CDT): 48 hour holter Strep pharyngitis 03/16/2021 07/23/2021 Assessment & Plan (03/16/2021 2:38 PM CDT): Augmentin BID x 10d Warm salt water gargles Osteoporosis without current pathological fracture 03/16/2021 04/24/2025 Assessment & Plan (03/16/2021 2:42 PM CDT): Prolia entered today Fall 01/19/2021 07/23/2021 Assessment & Plan (01/19/2021 2:22 PM DIALS SUPERVISOR): Head CT without contrast given LOC Reviewed brain rest for 2 weeks post concussion Closed fracture of nasal bones 01/19/2021 10/19/2022 Assessment & Plan (01/19/2021 2:22 PM DIALS SUPERVISOR): ENT referral Sneeze precautions reviewed Immunizations Immunization Administration Dates Next Due Influenza, Quadrivalent, Randi l Culture-based MDCK, Preservative Free, Antibiotic Free, Intramuscular 09/21/2022 Influenza, Quadrivalent, Spl it, Preservative Free, Intramuscular 08/17/2021 Influenza, Trivalent, High D ose, Split, Preservative Free, Intramuscular 01/17/2025 Influenza, Unspecified 10/04/2024(Deferr ed: Patient Refused),06/14/2023(Deferred: Patient Refused) Reinaldo (J&J) SARS-CoV-2 Vaccination 01/20/2021 Moderna SARS-CoV-2 Monovalen t Vaccination (12+ YRS) 10/13/2021 Moderna Sars-cov-2 Bivalent Vaccine 25 mcg/.25 mL (6 YRS-11 YRS)-Blue/Rosado 09/21/2022 Pfizer SARS-CoV-2 Monovalent Vaccination (12+ Yrs) PURPLE 01/20/2021 Pneumococcal Conjugate Pcv20 03/29/2024 Tdap 11/29/2021,11/18/2021 ZOSTER Recombinant 04/17/2025 Social History Tobacco Use Types Packs/Day Years Used Date Smoking Tobacco: Never Cigarettes Smokeless Tobacco: Never Tobacco Cessation:Counseling Given: Not Answered Alcohol Use Standard Drinks/Week Comments Yes 0 (1 standard drink = 0.6 oz pur e alcohol) 2x/week AUDIT-C Answer Date Recorded Q1: How often do you have a drink containing alc ohol? 2-3 times a week 03/29/2024 Q2: How many drinks containi ng alcohol do you have on a typical day when you are drinking? 1 or 2 03/29/2024 Q3: How often do you have si x or more drinks on one occasion? 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 Not on file Not on file Not on file Last Filed Vital Signs Vital Sign Reading Time Taken Comments Blood Pressure 120/84 04/24/2025 8:27 AM CDT Pulse 72 04/24/2025 8:27 AM CDT Temperature 36 C (96.8 F) 04/24/2025 8:27 AM CDT Respiratory Rate 14 04/24/2025 8:27 AM CDT Oxygen Saturation 98% 04/24/2025 8:27 AM CDT Inhaled Oxygen Concentration - - Weight 55.8 kg (123 lb) 04/24/2025 8:27 AM CDT Height 160 cm (5' 3) 04/24/2025 8:27 AM CDT Body Mass Index 21.79 04/24/2025 8:27 AM CDT Plan of Treatment Not on file Procedures Procedure Name Priority Date/Time Associated Diagnosis Comments CT HEART CALCIUM Schedule Routine, Read Routine (OP Routine) 05/10/2025 7:51 AM CDT Pure hypercholesterolemia Family history of coronary artery bypass graft EGFR Routine 04/24/2025 8:58 AM CDT Pure hypercholesterolemia DIFFERENTIAL AUTO Routine 04/24/2025 8:58 AM CDT Pure hypercholesterolemia CBC WITH AUTO DIFFERENTIAL Routine 04/24/2025 8:58 AM CDT Pure hypercholesterolemia COMPREHENSIVE METABOLIC PANEL Routine 04/24/2025 8:58 AM CDT Pure hypercholesterolemia LIPID PANEL Routine 04/24/2025 8:58 AM CDT Pure hypercholesterolemia THYROID FUNCTION CASCADE Routine 04/24/2025 8:58 AM CDT Screening for thyroid disorder VITAMIN D 25 HYDROXY Routine 04/24/2025 8:58 AM CDT Osteopenia, unspecified location VITAMIN B12 Routine 04/24/2025 8:58 AM CDT Osteopenia, unspecified location Encounter for vitamin deficiency screening HEPATITIS B SURFACE ANTIBODY (IMMUNE STATUS) Routine 04/24/2025 8:58 AM CDT Need for hepatitis B screening test HEPATITIS B SURFACE ANTIGEN Routine 04/24/2025 8:58 AM CDT Need for hepatitis B screening test HEPATITIS B CORE ANTIBODY, TOTAL Routine 04/24/2025 8:58 AM CDT Need for hepatitis B screening test HM PAP SMEAR WITH HPV Routine 03/21/2024 8:56 AM CDT DEXA AXIAL SKELETON BONE DENSITY 1 OR MORE SITES Schedule Routine, Read Routine (OP Routine) 10/26/2022 8:30 AM DIALS SUPERVISOR Osteopenia, unspecified location HEPATITIS C ANTIBODY Routine 10/19/2022 2:50 PM DIALS SUPERVISOR Need for hepatitis C screening test COLONOSCOPY 08/10/2018 9:15 AM CDT from Last 3 Months or Most Recently Relevant to Health Maintenance Results * CT Coronary Calcium Scoring (05/10/2025 7:51 AM CDT) Anatomical Region Laterality Modality Chest Computed Tomogra phy 05/12/2025 6:15 PM CDT Narrative 05/12/2025 6:20 PM CDT EXAM DESCRIPTION: CT CORONARY CALCIUM SCORING REASON FOR STUDY: CAD screening, borderline/intermediate risk 5-20% Family hx of heart disease. High cholesterol. Some chest pain due to anxiety. . Calcium score screening. TECHNIQUE: CT scan of the heart performed without intravenous and without oral contrast using helical scanning technique. Images reviewed with lung, soft tissue and bone windows. Reconstructed coronal and sagittal MPR images reviewed. Coronary calcium scoring images were reviewed. All images stored on PACS. Automated exposure control was used as a dose optimization technique for this examination. COMPARISON: CT chest 05/05/2021. FINDINGS: Calcium score: 0 Right coronary artery and Posterior descendin Left main: 0 Left anterior descendin Circumflex: 0 Heart: No cardiomegaly. No pericardial effusion. Other: The visualized portions of the thoracic aorta demonstrates no aneurysmal dilatation. There is no adenopathy by size criteria. More limited view of the adjacent lung demonstrates a 4.1 mm indeterminate pulmonary nodule of the more anterolateral aspect of the left upper lobe on axial image 4 of series 2. 4.3 mm nodule seen along the anterior aspect of the left lower lobe on image 49 abutting the major fissure. These are unchanged from an older CT of the chest from 05/05/2021. Long-term stability indicates benign etiology. IMPRESSION: 1. Total coronary artery calcium score is 0. 2. There are 2 small pulmonary nodules of the left lung measuring 4.1 mm and 4.3 no change from older CT of the chest from 05/05/2021. Long-term stability favors benign etiology. No specific follow-up recommended per Fleischner criteria. REFERENCE: Coronary calcium scoring should be interpreted in the context of the overall patient including other cardiac risk factors. Consider further evaluation if multi-vessel or left-main predominant disease is present. Coronary calcium scoring is for screening asymptomatic patients, symptomatic patients require prompt evaluation. Calcium Score 0: Does not imply complete absence of coronary artery disease as non-calcified plaques may be present, but these patients may require less aggressive medical/lipid targets. Typically, does not warrant further imaging evaluation. Calcium score>0: Recommend further clinical evaluation and consider lipid/medical therapy. Scores >100 are at higher risk and therapy should be more strongly considered. Scores greater than 300 may require more aggressive medical targets/therapy and evaluation. Eboni Barrera, Zack Johnson, Wai Hickman. Coronary Artery Calcium Score as a Graded Decision Tool. JACC Adv. 2022, 2 (9) . Christina Barnett, Lila. Annie, et al. 2018 AHA/ACC/AACVPR/AAPA/ABC/ACPM/ADA/AGS/APhA/ASPC/NLA/PCNA guideline on the management of blood cholesterol: a report of the [place] [employer]/[place] Heart Association Task Force on Clinical Practice Guidelines. J Am Terence Cardiol, 73 (24) (2019), pp. z165-k950 THIS IS AN ELECTRONICALLY VERIFIED FINAL REPORT 05/12/2025 6:20 PM - Electronically signed by Prasad Pimentel M.D. MJ: THI Report ID: [id number] Reading Location: [id number] Procedure Note Prasad Pimentel MD - 05/12/2025 EXAM DESCRIPTION: CT CORONARY CALCIUM SCORING REASON FOR STUDY: CAD screening, borderline/intermediate risk 5-20% Family hx of heart disease. High cholesterol. Some chest pain due toanxiety. . Calcium score screening. TECHNIQUE: CT scan of the heart performed without intravenous andwithout oral contrast using helical scanning technique. Images reviewed withlung, soft tissue and bone windows. Reconstructed coronal and sagittal MPRimages reviewed. Coronary calcium scoring images were reviewed. All imagesstored on PACS. Automated exposure control was used as a dose optimizationtechnique for this examination. COMPARISON: CT chest 05/05/2021. FINDINGS: Calcium score: 0 Right coronary artery and Posterior descendin Left main: 0 Left anterior descendin Circumflex: 0 Heart: No cardiomegaly. No pericardial effusion. Other: The visualized portions of the thoracic aorta demonstrates no aneurysmal dilatation. There is no adenopathy by size criteria. Morelimited view of the adjacent lung demonstrates a 4.1 mm indeterminate pulmonarynodule of the more anterolateral aspect of the left upper lobe on axial image 4of series 2. 4.3 mm nodule seen along the anterior aspect of the left lowerlobe on image 49 abutting the major fissure. These are unchanged from anolder CT of the chest from 05/05/2021. Long-term stability indicates benignetiology. IMPRESSION: 1. Total coronary artery calcium score is 0. 2. There are 2 small pulmonary nodules of the left lung measuring 4.1 mmand 4.3 no change from older CT of the chest from 05/05/2021. Long-termstability favors benign etiology. No specific follow-up recommended per Fleischner criteria. REFERENCE: Coronary calcium scoring should be interpreted in the contextof the overall patient including other cardiac risk factors. Consider further evaluation if multi-vessel or left-main predominant disease is present. Coronary calcium scoring is for screening asymptomatic patients,symptomatic patients require prompt evaluation. Calcium Score 0: Does not imply complete absence of coronary arterydisease as non-calcified plaques may be present, but these patients may require less aggressive medical/lipid targets. Typically, does not warrant furtherimaging evaluation. Calcium score>0: Recommend further clinical evaluation and consider lipid/medical therapy. Scores >100 are at higher risk and therapy shouldbe more strongly considered. Scores greater than 300 may require moreaggressive medical targets/therapy and evaluation. Eboni Barrera, Alex, R, Wai Hickman. Coronary Artery Calcium Score as aGraded Decision Tool. JACC Adv. 2022, 2 (9) . Christina Barnett, Edith Valencia, et al. 2018 AHA/ACC/AACVPR/AAPA/ABC/ACPM/ADA/AGS/APhA/ASPC/NLA/PCNA guideline on the management of blood cholesterol: a report of the [place] [employer]/[place] Heart Association Task Force on Clinical Practice Guidelines. J Am Terence Cardiol, 73 (24) (2019), pp. c096-h851 THIS IS AN ELECTRONICALLY VERIFIED FINAL REPORT 05/12/2025 6:20 PM - Electronically signed by Prasad Pimentel M.D. MJ: THI Report ID: [id number] Reading Location: [place] [address] Jose Antonio Bell MD IMG CT PROCEDURES Final Res ult * eGFR (04/24/2025 8:58 AM CDT) eGFR >90 >=60 mL/min/1. 73 m2 Comment: Interpretive Data Reference Interval Normal >/= 90 mL/min/1.73m2 Mildly decreased* 60 - 89 mL/min/1.73m2 Mildly to moderately decreased 45 - 59 mL/min/1.73m2 Moderately to severely decreased 30 - 44 mL/min/1.73m2 Severely decreased 15 - 29 mL/min/1.73m2 Kidney Failure < 15 mL/min/1.73m2 *Relative to young adult level Estimated glomerular filtration rate is determined by the 2020 CKD-EPI equation recommended by the National Kidney Foundation (A Unifying Approach to GFR Estimation: Recommendations of the NKF-ASK Task Force on Reassessing the Inclusion of Race in Diagnosing Kidney Disease, JASN 202). The CKD-EPI equation should not be used for patients with unstable renal function and has not been validated in children and those over 70. Current interpretive data was last reviewed 2021. Blood 04/24/2025 8:58 AM CDT 04/24/2025 4:22 PM CDT Jose Antonio Bell MD LAB BLOOD ORDERABLES Final Result [facility] [id number] Department [place] [address] * Differential, auto (04/24/2025 8:58 AM CDT) Neutrophil abs 2.48 1.50 - 6.50 K/cumm Imm gran abs 0.02 0.00 - 0.10 K/cumm [facility] Lymphocyte abs 1.81 0.80 - 3.30 K/cumm [facility] Monocyte abs 0.38 0.20 - 0.80 [facility] Eosinophil abs 0.15 0.00 - 0.50 K/cumm [facility] Basophil abs 0.09 0.00 - 0.10 K/cumm [facility] Neutrophil pct 50.4 % [facility] Comment: Interpretive Data Percent cell count reference ranges are not reported, since discordance with absolute values may lead to misinterpretation of CBC data. Current Interpretive Data was last revised on 2018. Imm gran pct 0.4 % [facility] Comment: Interpretive Data Percent cell count reference ranges are not reported, since discordance with absolute values may lead to misinterpretation of CBC data. Current Interpretive Data was last revised on 2018. Lymphocyte pct 36.7 % [facility] Comment: Interpretive Data Percent cell count reference ranges are not reported, since discordance with absolute values may lead to misinterpretation of CBC data. Current Interpretive Data was last revised on 2018. Monocyte pct 7.7 % [facility] Comment: Interpretive Data Percent cell count reference ranges are not reported, since discordance with absolute values may lead to misinterpretation of CBC data. Current Interpretive Data was last revised on 2018. Eosinophil pct 3.0 % [facility] Comment: Interpretive Data Percent cell count reference ranges are not reported, since discordance with absolute values may lead to misinterpretation of CBC data. Current Interpretive Data was last revised on 2018. Basophil pct 1.8 % [facility] Comment: Interpretive Data Percent cell count reference ranges are not reported, since discordance with absolute values may lead to misinterpretation of CBC data. Current Interpretive Data was last revised on 2018. Blood 04/24/2025 8:58 AM CDT 04/24/2025 4:51 PM CDT Jose Antonio Bell MD LAB BLOOD ORDERABLES Final Result Performing Organization Address [facility] Co de Phone Number NADINE RAMACHANDRAN [phone] [address] [facility] [employer] [place] [address] * Thyroid Function Garrett (04/24/2025 8:58 AM CDT) TSH 1.83 0.30 - 4.20 mcIUnit/mL Blood 04/24/2025 8:58 AM CDT 04/24/2025 4:22 PM CDT Jose Antonio Bell MD LAB BLOOD ORDERABLES Final Result Performing Organization Address [facility] de Phone Number NADINE RAMACHANDRAN [phone] [address] [facility] [employer] [place] [address] * (ABNORMAL) CBC with auto differential (04/24/2025 8:58 AM CDT) WBC 4.93 3.80 - 9.90 K/cumm Hgb 13.8 11.9 - 15.5 g/dL [facility] Hct 43.7 35.6 - 45.5 % [facility] Plt 304 150 - 400 K[facility]cumm [facility] MPV 9.3 9.1 - 12.3 fL [facility] RBC 4.58 3.90 - 5.20 M/cumm [facility] MCV 95.4 81.3 - 96.4 fL [facility] MCH 30.1 27.1 - 33.3 pg [facility] MCHC 31.6(L) 32.3 - 35.7 g/dL [facility] RDW CV 13.3 11.1 - 14.9 % [facility] RDW SD 46.5 35.7 - 48.1 fL [facility] NRBC abs 0.00 0.00 - 0.01 K/cumm [facility] Blood 04/24/2025 8:58 AM CDT 04/24/2025 4:22 PM CDT Jose Antonio Bell MD LAB BLOOD ORDERABLES Final Result Performing Organization Address [facility] Co de Phone Number NADINE RAMACHANDRAN [phone] [place] [address] * Hepatitis B core antibody, total Blood (04/24/2025 8:58 AM CDT) Pathologist [facility] Hep B core IgG/IgM Nonreactive Nonreactive Comment:Testing performed by : [facility], [address] [facility], [place]., [address] Blood 04/24/2025 8:58 AM CDT 04/25/2025 10:06 AM CDT Jose Antonio Bell MD LAB MICROBIOLOGY - GENERAL ORDERABLES Final Result Performing Organization Address [facility] Co de Phone Number MARCEHERIBERTO RAMACHANDRAN [phone] [place] [address] * Vitamin D 25 hydroxy (04/24/2025 8:58 AM CDT) [facility] Vitamin D 25-OH 51 30 - 80 ng/mL Blood 04/24/2025 8:58 AM CDT 04/24/2025 4:23 PM CDT Jose Antonio Bell MD LAB BLOOD ORDERABLES Final Result Performing Organization Address [facility] [place] [address] [address] [employer] [place] [address] * Hepatitis B surface antibody (immune status) Blood (04/24/2025 8:58 AM CDT) Pathologist [facility] HBsAb (immune status) Nonreactive Comment: Interpretive Data Nonreactive: This result is consistent with a lack of immunity to Hepatitis B Virus when used in the setting of routine screening. Equivocal: The immune status of the individual should be further assessed, if appropriate, after consideration of clinical status, risk factors, and additional diagnostic information. Reactive: This result is consistent with immunity to Hepatitis B Virus when used in the setting of routine screening. Current interpretive data was last revised on 20. Blood 04/24/2025 8:58 AM CDT 04/24/2025 4:23 PM CDT Jose Antonio Bell MD LAB MICROBIOLOGY - GENERAL ORDERABLES Final Result Performing Organization Address [facility] Co de Phone Number NADINE RAMACHANDRAN [phone] [address] [employer] [place] [address] * Hepatitis B Surface Antigen Blood (04/24/2025 8:58 AM CDT) HepBsAg Nonreactive Nonreactive Blood 04/24/2025 8:58 AM CDT 04/24/2025 4:23 PM CDT Jose Antonio Bell MD LAB MICROBIOLOGY - GENERAL ORDERABLES Final Result Performing Organization Address [facility] Co de Phone Number MARCEHERIBERTO [address] [address] [employer] [place] [address] * (ABNORMAL) Vitamin B12 (04/24/2025 8:58 AM CDT) Vitamin B12 217(L) 230 - 1,250 pg/mL Blood 04/24/2025 8:58 AM CDT 04/24/2025 4:22 PM CDT Jose Antonio Bell MD LAB BLOOD ORDERABLES Final Result Performing Organization Address [facility] Co de Phone Number NADINE [phone] [address] [place] [address] * (ABNORMAL) Lipid panel (04/24/2025 8:58 AM CDT) Cholesterol 231(H) 30 - 199 mg/dL Comment: Interpretive Data Ages < or = 19 years Acceptable: <170 mg/dL Borderline high: 170-199 mg/dL High: >or= 200 mg/dL Ages > or = 20 years Desirable: <200 mg/dL Borderline high: 200-239 mg/dL High: >or= 240 mg/dL Literature References: 1. Expert Panel on Integrated Guidelines for Cardiovascular Health and Risk Reduction in Children and Adolescents. Pediatrics 2011;128:S213 2. NCEP Expert Panel. Circulation 2004;110:227 Current Interpretive Data was last revised on 2018. Triglycerides 145 <=149 mg/dL NADINE Comment: Interpretive Data Ages < or = 9 years Acceptable: <75 mg/dL Borderline high: 75-99 mg/dL High: >or= 100 mg/dL Ages 10 to 20 years Acceptable: <90 mg/dL Borderline high: 90-129 mg/dL High: >or= 130 mg/dL Ages > or = 20 years Desirable: <150 mg/dL Borderline high: 150-199 mg/dL High: 200-499 mg/dL Very high: >or= 499 mg/dL Literature References: 1. Expert Panel on Integrated Guidelines for Cardiovascular Health and Risk Reduction in Children and Adolescents. Pediatrics 2011;128:S213 2. NCEP Expert Panel. Circulation 2004;110:227 Current Interpretive Data was last revised on 2018. HDL 55 >=40 mg/dL NADINE Comment: Interpretive Data Ages < or = 19 years Acceptable: >45 mg/dL Borderline low: 40-45 mg/dL Low: <40 mg/dL Ages > or = 20 years Desirable: >or= 60 mg/dL Low: <40 mg/dL Literature References: 1. Expert Panel on Integrated Guidelines for Cardiovascular Health and Risk Reduction in Children and Adolescents. Pediatrics 2011;128:S213 2. NCEP Expert Panel. Circulation 2004;110:227 Current Interpretive Data was last revised on 2018. LDL, calculated 150(H) <=129 mg/dL NADINE Comment: Interpretive Data Ages < or = 19 years Acceptable: <110 mg/dL Borderline high: 110-129 mg/dL High: >or= 130 mg/dL Ages > or = 20 years Optimal: <100 mg/dL Near optimal: 100-129 mg/dL Borderline high: 130-159 mg/dL High: >160 mg/dL Calculated using the Burnham LDL-C estimating equation. This equation was implemented on 2024. Prior to this date LDL-C was estimated using the Friedewald equation. Literature References: 1. Expert Panel on Integrated Guidelines for Cardiovascular Health and Risk Reduction in Children and Adolescents. Pediatrics 2011;128:S213 2. NCEP Expert Panel. Circulation 2004;110:227 3. Tej King et al. MANSOOR Cardiol. 2020 March 14;5(5):540-548. doi: 10.1001/[email or web address] Current Interpretive Data was last revised on 2024. Non-HDL Cholesterol 176 mg/dL CERNER Comment: Interpretive Data Ages < or = 19 years Acceptable: <120 mg/dL Borderline high: 120-144 mg/dL High: >145 mg/dL Ages > or = 20 years When triglycerides are >200 mg/dL, Non-HDL cholesterol is a secondary target of therapy with treatment goals that are 30 mg/dL greater than the LDL cholesterol target. Literature References: 1. Expert Panel on Integrated Guidelines for Cardiovascular Health and Risk Reduction in Children and Adolescents. Pediatrics 2011;128:S213 2. NCEP Expert Panel. Circulation 2004;110:227 Current Interpretive Data was last revised on 2018. Chol/HDL ratio 4 CERNER CH Blood 04/24/2025 8:58 AM CDT 04/24/2025 4:22 PM CDT us Jose Antonio Bell MD LAB BLOOD ORDERABLES Final Result [facility] [id number] [address] Department [place] [address] * Comprehensive metabolic panel (04/24/2025 8:58 AM CDT) Sodium 139 135 - 145 mmol/L Potassium, pl 4.1 3.3 - 4.9 mmol/L CERNER Chloride 103 97 - 110 mmol/L CERNER CH CO2 24 22 - 32 mmol/L CERNER CH Anion gap 12 2 - 15 mmol/L CERNER CH BUN 7 6 - 25 mg/dL CERNER CH Creatinine 0.63 0.60 - 1.10 mg/dL CERNER Glucose 90 70 - 199 mg/dL CERNER Comment: Interpretive Data Fasting glucose >/= 126 mg/dl is diagnostic for diabetes. Fasting is defined as no caloric intake for at least 8 hours. Fasting glucose between 100 mg/dl to 125 mg/dl is diagnostic of prediabetes. In a patient with classic symptoms of hyperglycemia or hyperglycemic crisis, a random glucose >/= 200 mg/dl is diagnostic for diabetes. In the absence of unequivocal hyperglycemia, results should be confirmed by repeat testing. The classification and Diagnosis of Diabetes Diabetes Care 2021; 46: S19-S40. Current interpretive data was last revised 2022. Calcium 9.3 8.5 - 10.3 mg/dL CERNER CH Bilirubin, total 0.3 0.1 - 1.2 mg/dL CERNER CH Protein, pl 7.0 6.5 - 8.5 g/dL CERNER CH Albumin 4.3 3.5 - 5.0 g/dL CERNER CH Alk phos 66 40 - 130 Units/L CERNER CH ALT 7 7 - 45 Units/L CERNER CH AST 18 10 - 45 Units/L CERNER CH Blood 04/24/2025 8:58 AM CDT 04/24/2025 4:22 PM CDT Jose Antonio Bell MD LAB BLOOD ORDERABLES Final Result NADINE RAMACHANDRAN [address] [address] Department [place] [address] * HM PAP SMEAR WITH HPV (03/21/2024 8:56 AM CDT) Historical Provider HEALTH MAINTENANCE Final Result * Dexa Axial Skeleton Bone Density 1 or 2 Site (10/26/2022 8:30 AM DIALS SUPERVISOR) Anatomical Region Laterality Modality Body N/A Digital Radiogra phy 10/26/2022 9:52 AM DIALS SUPERVISOR Impressions 10/26/2022 1:29 PM DIALS SUPERVISOR 1. The bone mineral density of the lumbar spine is mildly decreased. 2. The bone mineral density of the left femoral neck is mildly decreased. 3. The bone mineral density of the left total hip is mildly decreased. 4. Overall, the above findings are diagnostic of low bone mass (osteopenia) by WHO criteria. 5. Calculation of fracture risk using the FRAX model is not appropriate in certain settings. It was not performed in this patient because the patient met the following condition(s): Use of anti-resorptive therapy in 2 years. General comments regarding interpretation of bone density measurements: A) In children, premenopausal woman and males under age 50 not at increased risk for fractures only Z-scores, not T-scores are used to indicate risk. A Z-score above -2.0 is defined as within the expected range for age and Z-score at or less than -2.0 is below the expected range for age. A Z-score below the expected range for age in a patient with recent fractures and/or chronic corticosteroid treatment is consistent with a diagnosis of osteoporosis. B) In post menopausal women and males over 50, comparison of the measured bone mineral density with the average value in young normal subjects (the T-score) has been found to be useful in assessing fracture risk. Fracture risk approximately doubles for each 1.0 standard deviation (SD) in individual's hip or spine bone mineral density is below the average value of young normal subjects. The World Health Organization (WHO) has defined T-scores of -1.0 to -2.5 as diagnostic of low bone mass (OSTEOPENIA), and T-scores of -2.5 or lower to be diagnostic of OSTEOPOROSIS, based on the site of lowest bone density. Note that there will be a change in reporting format and reference databases as patients move from the younger population (group A) to the older population (group B) The National Osteoporosis Foundation (www.nof.org) recommends adequate intake of calcium and vitamin D and regular weight-bearing exercise in all patients. They recommend pharmacologic treatment in postmenopausal women and men age 50 and older presenting with any of the followin) Osteoporosis, after appropriate evaluation to exclude secondary causes. 2) A hip or vertebral (clinical or radiographic) fracture, regardless of the bone density. 3) Low bone mass (Osteopenia) and one or more of: other prior fractures, secondary causes associated with high risk of fracture (such as glucocorticoid use or total immobilization), or computed high risk of fracture (10-yr probability of hip fracture >= 3% or a 10-yr probability of any major osteoporosis-related fracture >= 20% based on the [place].-adapted WHO algorithm), available at http://www.shef.ac.uk/FRAX). Dictated by: Romulo Collazo MD PHD The radiology attending physician has personally reviewed this study, and had reviewed and/or edited this written report and agrees with it. Electronically signed by: Heather Berrios MD, Ph.D Narrative 10/26/2022 1:29 PM DIALS SUPERVISOR BONE DENSITOMETRY OF THE SPINE AND HIP DATE OF STUDY: 10/26/2022 HISTORY: 62-year-old postmenopausal woman with osteopenia. She is being treated with calcium and denosumab. Evaluate bone mineral density. Additional risk factors for fracture: none. FINDINGS (SPINE): The bone mineral density of L1-L4 was assessed by dual-energy x-ray absorptiometry. The average bone mineral density within this region is 0.792 gm/sq-cm. This is 0.6 standard deviations below the mean of the average bone mineral density for age- and gender-matched subjects (the Z-score). It is 2.3 standard deviations below the mean peak bone mineral density in young adults (the T-score). FINDINGS (FEMORAL NECK): The bone mineral density of the left femoral neck was assessed by dual-energy x-ray absorptiometry. The average bone mineral density within the femoral neck region is 0.722 gm/sq-cm. This is 0.3 standard deviations above the mean of the average bone mineral density for age- and gender-matched subjects (the Z-score). It is 1.1 standard deviations below the mean peak bone mineral density in young adults (the T-score). FINDINGS (TOTAL HIP): The bone mineral density of the left hip was assessed by dual-energy x-ray absorptiometry. The average bone mineral density within the total hip region is 0.698 gm/sq-cm. This is 0.9 standard deviations below the mean of the average bone mineral density for age- and gender-matched subjects (the Z-score). It is 2.0 standard deviations below the mean peak bone mineral density in young adults (the T-score). SUMMARY OF CURRENT RESULTS: Region BMD T-score Z-score AP Spine (L1-L4) 0.792 -2.3 -0.6 Femoral Neck (Left) 0.722 -1.1 0.3 Total Hip (Left) 0.698 -2.0 -0.9 Procedure Note Heather Carrizales MD PhD - 10/26/2022 BONE DENSITOMETRY OF THE SPINE AND HIP DATE OF STUDY: 10/26/2022 HISTORY: 62-year-old postmenopausal woman with osteopenia. She is being treated with calcium and denosumab. Evaluate bone mineral density. Additional risk factors for fracture: none. FINDINGS (SPINE): The bone mineral density of L1-L4 was assessed by dual-energy x-ray absorptiometry. The average bone mineral density within this region is 0.792 gm/sq-cm. This is 0.6 standard deviations below the mean of the average bone mineral density for age- and gender-matched subjects (the Z-score). It is 2.3 standard deviations below the mean peak bone mineral density in young adults (the T-score). FINDINGS (FEMORAL NECK): The bone mineral density of the left femoral neck was assessed by dual-energy x-ray absorptiometry. The average bone mineral density within the femoral neck region is 0.722 gm/sq-cm. This is 0.3 standard deviations above the mean of the average bone mineral density for age- and gender-matched subjects (the Z-score). It is 1.1 standard deviations below the mean peak bone mineral density in young adults (the T-score). FINDINGS (TOTAL HIP): The bone mineral density of the left hip was assessed by dual-energy x-ray absorptiometry. The average bone mineral density within the total hip region is 0.698 gm/sq-cm. This is 0.9 standard deviations below the mean of the average bone mineral density for age- and gender-matched subjects (the Z-score). It is 2.0 standard deviations below the mean peak bone mineral density in young adults (the T-score). SUMMARY OF CURRENT RESULTS: Region BMD T-score Z-score AP Spine (L1-L4) 0.792 -2.3 -0.6 Femoral Neck (Left) 0.722 -1.1 0.3 Total Hip (Left) 0.698 -2.0 -0.9 IMPRESSION: 1. The bone mineral density of the lumbar spine is mildly decreased. 2. The bone mineral density of the left femoral neck is mildly decreased. 3. The bone mineral density of the left total hip is mildly decreased. 4. Overall, the above findings are diagnostic of low bone mass (osteopenia) by WHO criteria. 5. Calculation of fracture risk using the FRAX model is not appropriate in certain settings. It was not performed in this patient because the patient met the following condition(s): Use of anti-resorptive therapy in 2 years. General comments regarding interpretation of bone density measurements: A) In children, premenopausal woman and males under age 50 not at increased risk for fractures only Z-scores, not T-scores are used to indicate risk. A Z-score above -2.0 is defined as within the expected range for age and Z-score at or less than -2.0 is below the expected range for age. A Z-score below the expected range for age in a patient with recent fractures and/or chronic corticosteroid treatment is consistent with a diagnosis of osteoporosis. B) In post menopausal women and males over 50, comparison of the measured bone mineral density with the average value in young normal subjects (the T-score) has been found to be useful in assessing fracture risk. Fracture risk approximately doubles for each 1.0 standard deviation (SD) in individual's hip or spine bone mineral density is below the average value of young normal subjects. The World Health Organization (WHO) has defined T-scores of -1.0 to -2.5 as diagnostic of low bone mass (OSTEOPENIA), and T-scores of -2.5 or lower to be diagnostic of OSTEOPOROSIS, based on the site of lowest bone density. Note that there will be a change in reporting format and reference databases as patients move from the younger population (group A) to the older population (group B) The National Osteoporosis Foundation (www.nof.org) recommends adequate intake of calcium and vitamin D and regular weight-bearing exercise in all patients. They recommend pharmacologic treatment in postmenopausal women and men age 50 and older presenting with any of the followin) Osteoporosis, after appropriate evaluation to exclude secondary causes. 2) A hip or vertebral (clinical or radiographic) fracture, regardless of the bone density. 3) Low bone mass (Osteopenia) and one or more of: other prior fractures, secondary causes associated with high risk of fracture (such as glucocorticoid use or total immobilization), or computed high risk of fracture (10-yr probability of hip fracture >= 3% or a 10-yr probability of any major osteoporosis-related fracture >= 20% based on the [place].S.-adapted WHO algorithm), available at http://www.shef.ac.uk/FRAX). Dictated by: Romulo Collazo MD PHD The radiology attending physician has personally reviewed this study, and had reviewed and/or edited this written report and agrees with it. Electronically signed by: Heather Berrios MD, Ph.D Horacio Adams MD [facility] DXA PROCEDURES Final Resu lt * Hepatitis C antibody (10/19/2022 2:50 PM DIALS SUPERVISOR) [facility] Hep C Ab <0.1 0.0 - 0.9 s/co ratio [facility] - 01 Comment: Negative: < 0.8 Indeterminate: 0.8 - 0.9 Positive: > 0.9 HCV antibody alone does not differentiate between previous resolved infection and active infection. The CDC and current clinical guidelines recommend that a positive HCV antibody result be followed up with an HCV RNA test to support the diagnosis of acute HCV infection. [facility] offers Hepatitis C Virus (HCV) RNA, Diagnosis, BRUCE (909288) and Hepatitis C Virus (HCV) Antibody with reflex to Quantitative Real-time PCR (605859). Blood 10/19/2022 2:50 PM DIALS SUPERVISOR 10/19/2022 Narrative [facility] - 10/20/2022 9:11 AM DIALS SUPERVISOR Performed at: 01 - [address] [id number] [employer] Car Operator: Zachariah Bah PhD, Phone: [phone] us Tara Hickman ASSISTANT ASSOCIATE PROFESSOR LAB MICROBIOLOGY - [facility] ORDERABLES Final Result [facility] - 01 * COLONOSCOPY (08/10/2018 9:15 AM CDT) Anatomical Region Laterality Modality Other Narrative Procedure Note Rojelio oGnzalez MD - 08/10/2018 9:15 AM CDT ENDOSCOPY LAB Patient Name: Danitza Lackey Procedure Date: 08/10/2018 9:15 AM Date of : 1960 Admit Type: Outpatient Age: 58 Gender: Female Attending MD: Rojelio Gonzalez M.D. Room: [place] [address] Note Status: Finalized Procedure Date No Time: 08/10/2018 Procedure: Colonoscopy Indications: Epigastric abdominal pain; Bloating; h/o Colonoscopy 6 years ago without polyps/abnormalities per report. Providers: Rojelio Gonzalez M.D. Referring MD: Karla Miramontes DO, Ang Cunningham MD Medicines: Monitored Anesthesia Care Complications: No immediate complications. Estimated blood loss:None. Estimated Blood Loss: Estimated blood loss: none. Procedure: Pre-Anesthesia Assessment: - The risks and benefits of the procedure and thesedation options and risks were discussed with the patient. All questions were answered and informed consent wasobtained. - Immediately prior to administration of medications,the patient was re-assessed for adequacy to receivesedatives. - The anesthesia plan was to use monitored anesthesiacare (MAC). The benefits, risks and alternatives of the procedureand sedation were discussed and informed consent wasobtained. All questions were answered. Please refer to the signed informed consent document in the medical record. Thescope was passed under direct vision. The [id number] introduced through the anus and advanced to the thececum, identified by appendiceal orifice and ileocecal valve.The colonoscopy was performed without difficulty. Thepatient tolerated the procedure well. The quality of the bowel preparation was evaluated using the BBPS ([place] Bowel Preparation Scale) with scores of: Right Colon = 3, Transverse Colon = 3 and Left Colon = 3 (entire mucosa seen well with no residual staining, small fragments of stool or opaque liquid). The total BBPS score equals9. Findings: Two semi-sessile polyps were found in the cecum. The polyps were diminutive in size. These polyps were removed with a cold biopsy forceps. Resection and retrieval were complete. A diminutive polyp was found in the hepatic flexure. The polyp was semi-sessile. The polyp was removed with a cold biopsy forceps. Resection and retrieval were complete. Multiple small-mouthed diverticula were found in the sigmoid colon. The colon (entire examined portion) appeared normal. Biopsies for histology were taken with a cold forceps from the cecum, right colon, left colon and transverse colon for evaluation of microscopiccolitis. External were found on perianal exam. Internal hemorrhoid were notedon retroflexion. Impression: - Two diminutive polyps in the cecum, removed with acold biopsy forceps. Resected and retrieved. - One diminutive polyp at the hepatic flexure, removed with a cold biopsy forceps. Resected and retrieved. - Sigmoid diverticulosis. - The entire examined colon is otherwise normal. Random biopsies obtained given report of episodic alternating loose/formed bowels. - Internal and external hemorrhoids. Recommendation: - Observe patient's clinical course following today's Colonscopy. - Await pathology. - Repeat colonoscopy in 5 years for surveilance. - Please followup with Dr. Cunningham regarding further workup of your symptoms. - Return to primary care physician as previouslyscheduled. - In the unusual situation that you develop abdominal pain, bleeding or other significant problems in thedays following this procedure please call my office at [phone] to speak to my nurses. After hours and evenings please call [phone] and speak to the GI fellow digital operations analyst. Please tell them that Dr. Gonzalez did your procedure and that your were instructed to have thefellow call me or the physician covering for me to discuss the management of your condition. If you have an urgent problem, please go to the nearest emergency room andhave the ER doctor call my office during the day or the GI Fellow after hours and weekends to arrange admission or transfer to our facility. - Call my nurse Marlene Jenkins RN in the GI office at [phone] for your final pathology results in 7days. Attending Participation: I personally performed the entire procedure. Electronically Signed By: Rojelio Gonzalez M.D. Rojelio Gonzalez M.D. 08/10/2018 10:14:35 AM Number of Addenda: 0 Note Initiated On: 08/10/2018 9:15 AM Rojelio Gonzalez MD ENDOSCOPY PROCEDURES Final Result from Last 3 Months or Most Recently Relevant to Health Maintenance Insurance [facility] SIG [id number] UHC MEDICARE ADVANTAGE [facility] MEDICARE ADVANTAGE Advance Directives For more information, please contact: [phone] * Full Code (Latest Code Status on File) Date Activated Date Inactivated Comments 08/10/2018 8:21 AM 08/10/2018 1:41 PM Care Teams Front End Web Designer Relationship Specialty Start Date End Date Jose Antonio Bell MD [facility] [place] [address] PCP - General Family Medicine 03/29/24 Klever Pizarro MD [address] [place] [address] [address] [place] [address] Referring Physician Gastroenterology 03/29/24 Gris Haque DO [address] [place] [address] [address] [place] [id number] Consulting Physician Obstetrics and Gynecology 03/29/24
--- OUTSIDE RECORDS SUMMARY | 2025-06-07 07:30 | XMS_ITS | Encounter Summary ---
Author Organization [facility] Address [address] [place] [address] Care Team Providers Care Manufacturing Weaver Name Role Phone Brianna Cordova PA-C Primary Care Provider [phone] Eze Engel DO Primary Care Provider + Encounter Details Date Type Department Care Team (Late st Contact Info) Description 05/26/2023 [employer] Message [employer] [facility] Family & Internal Medicine [address] [phone] [employer], [facility] Provider CT SCAN Social History Tobacco Use Types Packs/Day Years [...] on file documented as of this encounter Progress Notes * Dee Dee Nino RN - 05/31/2023 3:16 PM CDT Spoke to patient and informed CT is not due for 6 months. Patient also requests lab order for repeat BMP be sent to [facility] in [place]. documented in this encounter Plan of Treatment Not on file documented as of this encounter Visit Diagnoses Not on filedocumented in this encounter Care Teams Manufacturing Weaver Relationship Specialty Start Date End Date Brianna Cordova PA-C PCP - General PHYSICIAN WIRE HARNESS ASSEMBLER 05/09/23 08/09/23 Eze Engel DO [address] [place] [address] PCP - General 08/10/23 documented as of this encounter
--- OUTSIDE RECORDS SUMMARY | 2025-06-07 07:30 | XMS_ITS | Clinical Summary ---
Author Organization [facility] Address [address] [facility] [place] [address] Phone Care Team Providers Care Underwriting Intern Name Role Phone Jose Antonio Bell MD Primary Care Provider Allergies No known active allergies Medications ALPRAZolam (XANAX) 0.25 mg Oral tablet Take 0.25 mg by mouth nightly as needed. Active pantoprazole (PROTONIX) 20 mg Tablet, Delayed Release (E.C.) 2 Tablets. 02/24/2021 Active Active Problems Problem Noted Date Diagnosed Date Hx of adenomatous polyp of colon 09/23/2024 SSBE (short-segment Rosario's esophagus) 024 Osteopenia 12/08/2010 Overview (12/08/2010): Bone mineral density followed by dr. Elliot POLLOCK (mitral valve prolapse) 12/08/2010 Encounters Date Type Department Care Team Description 05/29/2025 External Device Data STL ABSTRACTION Provider, Abstract 05/29/2025 External Device Data STL ABSTRACTION Provider, Abstract 05/28/2025 External Device Data STL ABSTRACTION Provider, Abstract 04/02/2025 External Device Data STL ABSTRACTION Provider, Abstract from Last 3 Months Family History Medical History Relation Name Comments No Known Problems Daughter Heart Disease Father cabg Breast Cancer Maternal Cousin 47 Colon Cancer Maternal Cousin 47 Cancer Mother pancreatic No Known Problems Other Colon Cancer Paternal Grandmother Unknown Paternal Grandmother Breast Cancer Sister 1 Cancer Sister 2 pancreatic cyst s- precancerous Ovarian Cancer Neg Hx Relation Name Status Comments Daughter Father Alive Maternal Cousin 47 Alive Maternal Grandmother Mother Other Paternal Grandmother Sister 1 Alive Sister 2 Alive Social History Tobacco Use Types Packs/Day Years Used Date Smoking Tobacco: Never Smokeless Tobacco: Never Tobacco Cessation:Counseling Given: Not Answered Alcohol Use Standard Drinks/Week Comments Yes 2.5 (1 standard drink = 0.6 oz p ure alcohol) Occassionally Comments No Sex and Gender Information Value Date Recorded Sex Assigned at Female 09/17/2024 8:49 PM ORIENTAL MEDICINE PRACTITIONER Legal Sex Female 5:17 AM ORIENTAL MEDICINE PRACTITIONER Gender Identity Female 09/17/2024 8:49 PM ORIENTAL MEDICINE PRACTITIONER Sexual Orientation Not on file Occupation Industry Job Start Date Job End Date Not on file Not on file Not on file Not on file Last Filed Vital Signs Vital Sign Reading Time Taken Comments Blood Pressure 121/83 09/19/2024 10:17 AM ORIENTAL MEDICINE PRACTITIONER Pulse 65 09/19/2024 10:17 AM ORIENTAL MEDICINE PRACTITIONER Temperature 36.1 C (97 F) 09/19/2024 9:57 AM ORIENTAL MEDICINE PRACTITIONER Respiratory Rate 16 09/19/2024 10:17 AM ORIENTAL MEDICINE PRACTITIONER Oxygen Saturation 98% 09/19/2024 10:17 AM ORIENTAL MEDICINE PRACTITIONER Inhaled Oxygen Concentration - - Weight 55.3 kg (122 lb) 09/19/2024 8:05 AM ORIENTAL MEDICINE PRACTITIONER Height 160 cm (5' 3) 09/19/2024 8:05 AM ORIENTAL MEDICINE PRACTITIONER Body Mass Index 21.61 09/19/2024 8:05 AM ORIENTAL MEDICINE PRACTITIONER Plan of Treatment Health Maintenance Due Date Last Done Comments FIT-DNA Q 3 years 02/14/2004 FIT/FOBT Q 1 year 02/14/2004 Flex Sig/CT Colonography Q 5 years 02/14/2004 ZOSTER VACCINE (1 of 2) 2009 COVID-19 Vaccine (2023-2 5 season) 2024 09/21/2022, 10/13/2021, 01/20/2021, Additional history exists INFLUENZA VACCINE (#1) 2025 2, 09/21/2022, 08/17/2021 BREAST CANCER SCREENING 10/25/2025 10/25/20 24, 09/07/2023, 09/07/2023, Additional history exists UPPER GI ENDOSCOPY 09/19/2027 09/19/2024, 08/10/2018 OSTEOPOROSIS SCREENING 10/26/2027 10/26/2022, 2021 COLORECTAL SCREENING 09/19/2031 09/19/2024, 09/19/2024, 08/10/2018, Additional history exists Colorectal Cancer Screening 09/19/2031 DTAP/TDAP/TD VACCINES (3 - T d or Tdap) 11/29/2031 11/29/2021, 11/18/2021 RSV VACCINE (60+ or ) (1 - 1-dose 75+ series) 2034 PNEUMOCOCCAL VACCINE 50+ YEARS Completed 03/29/2024 Procedures Procedure Name Priority Date/Time Associated Diagnosis Comments MAMMO 3D KITTY SCREEN BILAT W OR WO CAD Routine 10/25/2024 9:26 AM ORIENTAL MEDICINE PRACTITIONER Encounter for screening mammogram for malignant neoplasm of breast COLONOSCOPY REPORT 09/19/2024 9: 59 AM ORIENTAL MEDICINE PRACTITIONER from Last 3 Months or Most Recently Relevant to Health Maintenance Results * MAMMO 3D KITTY SCREEN BILAT W OR WO CAD (10/25/2024 9:26 AM ORIENTAL MEDICINE PRACTITIONER) Anatomical Region Laterality Modality Breast Bilateral Mammography 10/25/2024 9:26 AM ORIENTAL MEDICINE PRACTITIONER Impressions 10/26/2024 3:33 PM ORIENTAL MEDICINE PRACTITIONER IMPRESSION: Negative bilateral screening mammogram. Recommend routine followup. OVERALL FINAL ASSESSMENT: BI-RADS CATEGORY 1: Negative DICTATION LOCATION: [facility] Narrative 10/26/2024 3:33 PM ORIENTAL MEDICINE PRACTITIONER BILATERAL SCREENING DIGITAL MAMMOGRAM WITH 3D TOMOSYNTHESIS AND CAD DATE: 10/25/2024 9:26 AM HISTORY: Annual screening study. COMPARISON: 09/07/2023, 10/30/2018 TECHNIQUE: A bilateral screening mammogram was performed. Low-dose full-field digital breast tomosynthesis examination was performed with 2D and 3D acquisitions. Examination is read in conjunction with computer aided detection. BREAST COMPOSITION: Scattered fibroglandular densities FINDINGS: No new masses, suspicious calcifications, or areas of asymmetry or distortion are identified. The images were reviewed using the CAD system. Procedure Note April Colvin MD - 10/26/2024 BILATERAL SCREENING DIGITAL MAMMOGRAM WITH 3D TOMOSYNTHESIS AND CAD DATE: 10/25/2024 9:26 AM HISTORY: Annual screening study. COMPARISON: 09/07/2023, 10/30/2018 TECHNIQUE: A bilateral screening mammogram was performed. Low-dose full-field digital breast tomosynthesis examination was performed with 2D and 3D acquisitions. Examination is read in conjunction with computer aided detection. BREAST COMPOSITION: Scattered fibroglandular densities FINDINGS: No new masses, suspicious calcifications, or areas of asymmetry or distortion are identified. The images were reviewed using the CAD system. IMPRESSION: Negative bilateral screening mammogram. Recommend routine followup. OVERALL FINAL ASSESSMENT: BI-RADS CATEGORY 1: Negative DICTATION LOCATION: [facility] Gris Haque DO MAMMO ORDERABLES Final Result * COLONOSCOPY REPORT (09/19/2024 9:59 AM ORIENTAL MEDICINE PRACTITIONER) Narrative Procedure Note Klever Pizarro MD - 09/19/2024 9:59 AM CST [facility] Endoscopy Patient Name: Danitza Loyola Procedure Date: 09/19/2024 Date of : 1960 Attending MD: Klever Pizarro MD, Procedure: Colonoscopy Indications: Surveillance: Personal history of adenomatous polyps on last colonoscopy > 5 years ago Providers: Klever Pizarro MD Referring MD: Ang Cunningham Medicines: Propofol per Anesthesia Complications: No immediate complications. Procedure: Informed consent was obtained for the procedure, including moderate sedation after risks were discussed. Based on the pre-procedure assessment, including review of the patient's medical history, medications, allergies, and review of systems, the patient was deemed to be an appropriate candidate for sedation. A timeout was performed. Continuous ECG monitoring, pulse oximetry, blood pressure monitoring, and direct observation were performed. The Colonoscope was introduced through the anus and advanced to the terminal ileum, with identification of the appendiceal orifice and IC valve. The colonoscopy was performed without difficulty. The patient tolerated the procedure well. The quality of the bowel preparation was good. Estimated Blood Loss: Estimated blood loss: none. Findings: A 3 mm polyp was found in the ascending colon. The polyp was sessile. The polyp was removed with a cold snare. Resection and retrieval were complete. A 3 mm polyp was found in the sigmoid colon. The polyp was sessile. The polyp was removed with a cold snare. Resection and retrieval were complete. Internal hemorrhoids were found during retroflexion. The hemorrhoids were small. Impression: - 2 diminuitive colo0n polyps. Resected and retrieved. - Internal hemorrhoids. Recommendation: - Await pathology results. Klever Pizarro MD 09/19/2024 9:59:40 AM This report has been signed electronically. Number of Addenda: [address]; [place] [address] Klever Pizarro MD GI PROCEDURE ORDERABLES Final Re sult from Last 3 Months or Most Recently Relevant to Health Maintenance Insurance [facility] Address: [facility] [address] [place] [address] Advance Directives For more information, please contact: [phone] * Full Code (Latest Code Status on File) Date Activated Date Inactivated Comments 09/19/2024 8:05 AM 09/19/2024 12:37 PM * Full Code Date Activated Date Inactivated Comments 09/08/2012 10:42 AM 09/08/2012 3:14 PM Care Teams Underwriting Intern Relationship Specialty Start Date End Date Jose Antonio Bell MD [address] [place] [address] PCP - General Family Practice 09/19/24
--- OUTSIDE RECORDS SUMMARY | 2025-06-07 07:30 | XMS_ITS | Encounter Summary ---
Author Organization [facility] Healthcare Address [address] [place] [address] Care Team Providers Care Fur Blender Name Role Phone Ang Cunningham MD Primary Care Provider [phone] Horacio Adams MD Primary Care Provider [phone] Jose Antonio Bell MD Primary Care Provider [phone] Klever Pizarro MD Unavailable Gris Haque DO Unavailable [phone] Reason for Referral * Diagnostic Imaging (Routine) - Closed Specialty Diagnoses / Procedures Referred By Simran scales Referred To Contact Radiology Diagnoses Acute abdominal pain Procedures CT Abdomen W Contrast Karla Miramontes DO Phone: tel: fax: [address] [address] Referral ID Status Reason Start Date Expiration Date Visits Re quested Visits Authorized [id number] Closed 07/28/2018 02/06/2020 1 1 Encounter Details Date Type Department Care Team (Late st Contact Info) Description 07/28/[address] [facility] EpicCare Link Karla Miramontes DO [address] [facility] [address] [place] [address] Acute abdominal pain (Primary Dx) Social History Tobacco Use Types Packs/Day Years Used Date Smoking Tobacco: Never Assessed Comments Unknown Sex and Gender Information Value Date Recorded Sex Assigned at Not on file Legal Sex Female 7:18 AM RELAY OPERATOR Gender Identity Not on file Sexual Orientation Straight 04/11/2019 10 :44 AM CDT documented as of this encounter Plan of Treatment Not on file documented as of this encounter Results * CT Abdomen W Contrast (07/31/2018 1:56 PM CDT) Anatomical Region Laterality Modality Body N/A Computed Tomogra phy 07/31/2018 2:39 PM CDT Impressions 07/31/2018 2:53 PM CDT 1. No evidence of pancreatic cancer, pancreatitis, cholecystitis, nephrolithiasis, or hydronephrosis. No evidence of duodenal or gastric ulcer or inflammation. Pelvic causes of pain or blood in the stool have not been evaluated on this scan as a pelvis was evaluated on this study. 2. Left lower lobe pulmonary nodule. Recommend one-year follow-up CT to ensure stability. 3. Hypervascular hepatic lesion representing either focal nodule hyperplasia or a hemangioma. Electronically signed by: Emanuel Gillespie M.D. Narrative 07/31/2018 2:53 PM CDT EXAMINATION: Computed tomography of the abdomen with intravenous contrast HISTORY: Acute abdominal pain TECHNIQUE: Transaxial computed tomographic images of the abdomen were obtained with intravenous contrast according to the standard protocol after the uneventful administration of 100 mL Opti-Ray 350 intravenous contrast. COMPARISON: None available FINDINGS: Linear opacities in the azygoesophageal recess of the right lower lobe are likely due to aspiration. An indeterminate solitary solid pulmonary nodule is seen within the lateral basal segment of the left lower lobe abutting the lateral pleural and measures 5 x 6 mm. No pleural effusion is seen. A 5 mm hypoattenuating lesion seen within segment 7/8 is higher in attenuation than simple fluid and is too small to accurately characterize. This lesion is indeterminate, but may represent a hemangioma. There is a homogeneously hyperenhancing lesion within segment 2 which measures 1.0 cm, which is favored to be a flash filling hemangioma or a focal nodular hyperplasia. The spleen, adrenal glands, and pancreas are normal in size and contour. The kidneys contain multiple hypoattenuating lesions which are too small to characterize but statistically are likely to represent simple cysts. No hydronephrosis is present. The visualized portion of the colon, small bowel, and stomach are nondilated and there is no focal wall thickening. There is no evidence of wall thickening, inflammation or ulceration of the gastric or duodenal martinez. Note that most of the colon and much of the small bowel are not included in the scan range and therefore not evaluated. The included portions of the jejunum and colon demonstrated no abnormality. Bone windows: No suspicious osteolytic or osteoblastic lesions are present. Procedure Note Emanuel Mcrae MD - 07/31/2018 EXAMINATION: Computed tomography of the abdomen with intravenous contrast HISTORY: Acute abdominal pain TECHNIQUE: Transaxial computed tomographic images of the abdomen were obtained with intravenous contrast according to the standard protocol after the uneventful administration of 100 mL Opti-Ray 350 intravenous contrast. COMPARISON: None available FINDINGS: Linear opacities in the azygoesophageal recess of the right lower lobe are likely due to aspiration. An indeterminate solitary solid pulmonary nodule is seen within the lateral basal segment of the left lower lobe abutting the lateral pleural and measures 5 x 6 mm. No pleural effusion is seen. A 5 mm hypoattenuating lesion seen within segment 7/8 is higher in attenuation than simple fluid and is too small to accurately characterize. This lesion is indeterminate, but may represent a hemangioma. There is a homogeneously hyperenhancing lesion within segment 2 which measures 1.0 cm, which is favored to be a flash filling hemangioma or a focal nodular hyperplasia. The spleen, adrenal glands, and pancreas are normal in size and contour. The kidneys contain multiple hypoattenuating lesions which are too small to characterize but statistically are likely to represent simple cysts. No hydronephrosis is present. The visualized portion of the colon, small bowel, and stomach are nondilated and there is no focal wall thickening. There is no evidence of wall thickening, inflammation or ulceration of the gastric or duodenal martinez. Note that most of the colon and much of the small bowel are not included in the scan range and therefore not evaluated. The included portions of the jejunum and colon demonstrated no abnormality. Bone windows: No suspicious osteolytic or osteoblastic lesions are present. IMPRESSION: 1. No evidence of pancreatic cancer, pancreatitis, cholecystitis, nephrolithiasis, or hydronephrosis. No evidence of duodenal or gastric ulcer or inflammation. Pelvic causes of pain or blood in the stool have not been evaluated on this scan as a pelvis was evaluated on this study. 2. Left lower lobe pulmonary nodule. Recommend one-year follow-up CT to ensure stability. 3. Hypervascular hepatic lesion representing either focal nodule hyperplasia or a hemangioma. Electronically signed by: Emanuel Gillespie M.D. Karla Miramontes IM CT PROCEDURES Final Result documented in this encounter Visit Diagnoses Diagnosis Acute abdominal pain- Primary Abdominal pain, unspecified site Acute abdominal pain Abdominal pain, unspecified site documented in this encounter Additional Health Concerns Infection Onset Date Last Indicated Resolved Time COVID: Suspected 06/05/2022 06/05/2022 06/05/2022 11:59 AM CDT COVID: Suspected 08/04/2022 08/04/2022 08/04/2022 9:19 AM CDT COVID: Suspected 08/04/2022 08/04/2022 08/04/2022 5:31 PM CDT COVID: Suspected 08/30/2022 08/30/2022 08/30/2022 10:33 PM CDT COVID: Suspected 10/11/2022 10/11/2022 10/11/2022 12:04 PM RELAY OPERATOR COVID: Suspected 10/11/2022 10/11/2022 10/11/2022 4:10 PM RELAY OPERATOR COVID: Suspected 10/08/2024 10/08/2024 10/08/2024 9:16 AM RELAY OPERATOR documented as of this encounter Care Teams Fur Blender Relationship Specialty Start Date End Date Ang Cunningham MD [address] [address] PCP - General 01/21/17 10/16/20 Horacio Adams MD [address] [address] PCP - General Internal Medicine 10/17/20 03/28/24 Jose Antonio Bell MD [address] [place] [address] PCP - General Family Medicine 03/29/24 Klever Pizarro MD [address] [facility] [address] [place] [address] Referring Physician Gastroenterology 03/29/24 Gris Haque DO [address] [facility] [address] [place] [address] Consulting Physician Obstetrics and Gynecology 03/29/24 documented as of this encounter
--- OUTSIDE RECORDS SUMMARY | 2025-06-07 07:30 | XMS_ITS | Encounter Summary ---
Author Organization [facility] Address [address] [place] [address] Care Team Providers Care Bar Manager Name Role Phone Jose Antonio Bell MD Primary Care Provider Encounter Details Date Type Department Care Team (Latest Contact Info) Description 10/29/2005 Outpatient Historical [facility] Zarate Jr., Destiney Damian MD NO ADDRESS ON FILE SCREENING MAMM-MAILG NEOPL NEC (Primary Dx) Social History Tobacco Use Types Packs/Day Years Used Date Smoking Tobacco: Never Assessed Comments Unknown Sex and Gender Information Value Date Recorded Sex Assigned at Female 09/17/2024 8:49 PM BRAND DIRECTOR Legal Sex Female 5:17 AM BRAND DIRECTOR Gender Identity Female 09/17/2024 8:49 PM BRAND DIRECTOR Sexual Orientation Not on file documented as of this encounter Plan of Treatment Not on file documented as of this encounter Visit Diagnoses Diagnosis Other screening mammogram- Primary documented in this encounter Care Teams Bar Manager Relationship Specialty Start Date End Date Jose Antonio Bell MD [address] [place] [phone] PCP - General Family Practice 09/19/24 documented as of this encounter
--- OUTSIDE RECORDS SUMMARY | 2025-06-07 07:30 | XMS_ITS | Encounter Summary ---
Author Organization [facility] Healthcare Address [address] [place] [address] Care Team Providers Care Painter Foreman Name Role Phone Jose Antonio Bell MD Primary Care Provider [phone] Klever Pizarro MD Unavailable Gris Haque DO Unavailable [phone] Encounter Details Date Type Department Care Team (Late st Contact Info) Description 04/25/2025 Results Follow-Up [facility] Medical [facility] Primary Care at [address] [address] Jose Antonio Bell MD [address] [place] [address] [address] [place] [address] Hepatitis B Surface Antigen Blood, Hepatitis B surface antibody (immune status) Blood, Vitamin B12, Additional followed-up results: 8 Social History Tobacco Use Types Packs/Day Years Used Date Smoking Tobacco: Never Cigarettes Smokeless Tobacco: Never Alcohol Use Standard Drinks/Week [...] on file Legal Sex Female 7:18 AM COMMUNITY PLANNER Gender Identity Not on file Sexual Orientation Straight 04/11/2019 10 :44 AM CDT 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 Not on file Not on file Not on file documented as of this encounter Ordered Prescriptions Prescription Sig Dispense Quantity Refills Last Filled Start Date End Date insulin syringe-needle U-100 (BD Insulin Syringe Ultra-Fine) 1 mL 31 gauge x 03/29 syringeIndications :Vitamin B12 deficiency For monthly vitamin B12 injections 10 each 3 04/25/2025 cyanocobalamin (Vitamin B-12) 1,000 mcg/mL injectionIndicatio ns:Vitamin B12 Deficiency Inject 1 mL (1,000 mcg total) into the muscle as instructed every 30 (thirty) days 3 mL 3 04/25/2025 documented in this encounter Plan of Treatment Not on file documented as of this encounter Visit Diagnoses Diagnosis Vitamin B12 deficiency- Primary Other B-complex deficiencies documented in this encounter Care Teams Painter Foreman Relationship Specialty Start Date End Date Jose Antonio Bell MD [address] [place] [address] PCP - General Family Medicine 03/29/24 Klever Pizarro MD [address] [facility] [address] [place] [address] Referring Physician Gastroenterology 03/29/24 Gris Haque DO [address] [facility] [address] [place] [address] Consulting Physician Obstetrics and Gynecology 03/29/24 documented as of this encounter
--- OUTSIDE RECORDS SUMMARY | 2025-06-07 07:30 | XMS_ITS | Clinical Summary ---
Author Organization [facility] Address [address] [place] [address] Care Team Providers Care Manager Of Human Resources Name Role Phone Erlin Tony DO Primary Care Provider + Allergies No known active allergies Medications calcium citrate-vitamin D 315 MG-5 mcg tablet Take 2 tablets by mouth 2 (two) times daily. Active ALPRAZolam (XANAX) 0.25 MG tablet Take 1 tablet (0.25 mg total) by mouth nightly as needed for Sleep. Active multi vitamin/minerals (THERA-M ENHANCED) tablet Take 1 tablet by mouth daily. Active pantoprazole EC (PROTONIX) 40 MG tabletIndication s:Gastroesophage al reflux disease, unspecified whether esophagitis present,Hiatal hernia Take 1 tablet (40 mg total) by mouth daily. 90 tablet 1 09/28/2023 Active Active Problems Problem Noted Date Diagnosed Date Strain of flank 11/17/2022 Overview (08/11/2023): Last Assessment & Plan: Topical lidocaine patches (on for 12/off for 12) Heat PRN Gentle stretching Will notify us early next week, if not improving will proceed with CT Insomnia 10/19/2022 Overview (08/11/2023): Last Assessment & Plan: Trial trazodone 25mg HS History of colon polyps 08/19/2022 Overview (08/11/2023): Added automatically from request for surgery [id number] Anxiety 02/24/2022 Overview (08/11/2023): Last Assessment & Plan: Trial sertraline, start 25mg may increase to 50mg in 1-2 weeks Alprazolam PRN (currently using 1-2x weekly) Pure hypercholesterolemia 02/24/2022 Overview (08/11/2023): Last Assessment & Plan: Will recheck fasting, if elevated will need to consider medication given Hx Allergic rhinitis 07/23/2021 Overview (08/11/2023): Last Assessment & Plan: Continue flonase Trial singulair nightly Gastroesophageal reflux dise ase with esophagitis without hemorrhage 03/16/2021 Overview (08/11/2023): Last Assessment & Plan: Increase Protonix to 40mg daily x 6 weeks MVP (mitral valve prolapse) 12/08/2010 Osteopenia 12/08/2010 Overview (08/11/2023): Bone mineral density followed by dr. Zarate Bone mineral density followed by dr. Zarate Immunizations Immunization Administration Dates Next Due MODERNA COVID-19 BIVALENT (12+), MRNA, LNP-S, PF 09/21/2022 MODERNA COVID-19 (12+) MRNA, LNP-S, PF, 100 MCG/ 0.5 ML DOSE 10/03/2021 PFIZER COVID-19 (ORIGINAL FO RMULATION, PURPLE CAP) mRNA, LNP-S, PF, 30 MCG/0.3 ML DOSE 01/20/2021 Tdap (Generic) 11/18/2021 Family History Medical History Relation Comments Heart Disease Father 5 bypass at 86, lived to 100 Heart Disease Maternal Uncle 1 Heart Disease Maternal Uncle 2 Arthritis Mother Asthma Mother Cancer Mother pancreatic Dementia Mother Pancreatic cancer Mother Heart Disease Nephew [place] at 35 Breast Cancer Other maternal cousin Breast Cancer Sister 1 62 Cancer Sister 1 breast Pancreas Disease Sister 2 Cancer Sister 3 precancer pancre atic Relation Status Comments Father Maternal Uncle 1 Maternal Uncle 2 Mother Nephew Alive Other Sister 1 Alive Sister 2 Alive Sister 3 Social History Tobacco Use Types Packs/Day Years Used Date Smoking Tobacco: Never Smokeless Tobacco: Never Alcohol Use Standard Drinks/Week Comments Yes 0 (1 standard drink = 0.6 oz pur e alcohol) a few drinks per week PHQ-2 Answer Date Recorded Patient Health Questionnaire-2 Score 0 05/09/2023 Comments No Sex and Gender Information Value Date Recorded Sex Assigned at Not on file Legal Sex Female 11:43 AM CDT Gender Identity Not on file Sexual Orientation Not on file Occupation Industry Job Start Date Job End Date Not on file Not on file Not on file Not on file Last Filed Vital Signs Vital Sign Reading Time Taken Comments Blood Pressure 126/78 09/28/2023 10:13 AM SOCIAL SCIENCE RESEARCH ASSISTANT Pulse 73 09/28/2023 10:13 AM SOCIAL SCIENCE RESEARCH ASSISTANT Temperature 36.9 C (98.4 F) 09/28/2023 10:13 AM SOCIAL SCIENCE RESEARCH ASSISTANT Respiratory Rate 16 09/28/2023 10:13 AM SOCIAL SCIENCE RESEARCH ASSISTANT Oxygen Saturation 98% 09/28/2023 10:13 AM SOCIAL SCIENCE RESEARCH ASSISTANT Inhaled Oxygen Concentration - - Weight 53.1 kg (117 lb) 09/28/2023 10:13 AM SOCIAL SCIENCE RESEARCH ASSISTANT Height 160 cm (5' 3) 09/28/2023 10:13 AM SOCIAL SCIENCE RESEARCH ASSISTANT Body Mass Index 20.73 09/28/2023 10:13 AM SOCIAL SCIENCE RESEARCH ASSISTANT Plan of Treatment Health Maintenance Due Date Last Done Comments Pneumococcal Vaccine: 50+ Years (1 of 2 - PCV) 1978 Zoster Vaccines (1 of 2) 2009 RSV Immunization or 60+ Years (1 - Risk 60-74 years 1-dose series) 2019 Colorectal Cancer Screening Colonoscopy (10 Years) 08/10/2023 08/10/2018 Dexa Scan (General) 02/14/2024 COVID-19 Vaccine ( season) 2024 09/21/2022, 10/03/2021, 01/20/2021, Additional history exists PHQ-2 (Physician [place]) 11/14/2024 Mammogram Screening 09/07/2025 09/07/2023, DTaP, Tdap and Td Vaccines (2 - Td or Tdap) 11/18/2031 11/18/2021 Hepatitis C Completed 10/19/2022 Meningococcal B Vaccine Aged Out No l onger eligible based on patient's age to complete this topic Meningococcal Vaccine Aged Out No sweetie pratik eligible based on patient's age to complete this topic RSV Immunizations Under 20 Months Aged Out No longer eligible based on patient's age to complete this topic Procedures Procedure Name Priority Date/Time Associated Diagnosis Comments MG SCREENING W KITTY JACEK DIGI Routine 09/07/2023 10:50 AM CDT Encounter for screening mammogram for breast cancer HEPATITIS C ANTIBODY Routine 10/19/2022 COLONOSCOPY GENERIC (SCAN ORDER) Routine 08/10/2018 from Last 3 Months or Most Recently Relevant to Health Maintenance Results * MG SCREENING W KITTY JACEK DIGI (09/07/2023 10:50 AM CDT) Anatomical Region Laterality Modality Breast Bilateral Mammography 09/07/2023 10:5 5 AM CDT Narrative 09/07/2023 10:56 AM CDT Examination: Screening bilateral mammogram Exam Date/Time: 09/07/2023 10:46 AM Clinical history: No current complaints. Comparison: 08/19/2022 Technique: Digital screening mammography of both breasts was performed. Breast tomosynthesis acquisitions were obtained and reviewed. This study was read with the assistance of a computer-aided detection system. Tissue density: There are scattered areas of fibroglandular density. Findings: No suspicious masses, malignant appearing calcifications, skin thickening or other abnormalities are present. No significant change from the prior exam. IMPRESSION: No suspicious mammographic findings. Recommendation: 1. Routine Screening, Bilateral Assessment: ACR BI-RADS 2 - BENIGN FINDING(S) Ordered By: ERLIN TONY Interpreted By: Rashel Fitzgerald, 09/07/2023 10:55 AM us Erlin Tony DO MAMMO Final Re sult * HEPATITIS C ANTIBODY (10/19/2022) 10/19/2022 Narrative Laurie Wheatley, MA - 10/19/2022 Negative us Default History Genericprovider LABORATORY Final Result * COLONOSCOPY (08/10/2018) us [facility] Scanned SCANNING Final Resu lt [facility] from Last 3 Months or Most Recently Relevant to Health Maintenance Insurance [facility] Care Teams Manager Of Human Resources Relationship Specialty Start Date End Date Erlin Tony DO [address] [place] [id number] PCP - General 08/10/23
--- OUTSIDE RECORDS SUMMARY | 2025-06-07 07:30 | XMS_ITS | Encounter Summary ---
Author Organization [facility] Healthcare Address [address] [place] [address] Care Team Providers Care License Inspector Name Role Phone Hroacio Adams MD Primary Care Provider [phone] Jose Antonio Bell MD Primary Care Provider [phone] Klever Pizarro MD Unavailable Gris Haque DO Unavailable [phone] Encounter Details Date Type Department Care Team (Late st Contact Info) Description 05/22/2021 Telephone [facility] Radiology [address] [place] [address] Tara Hickman, EVENT SALES REPRESENTATIVE [address] [id number] Social History Tobacco Use Types Packs/Day Years Used Date Smoking Tobacco: Never Smokeless Tobacco: Never Alcohol Use Standard Drinks/Week Comments Yes 0 (1 standard drink = 0.6 oz pur e alcohol) 2x/week Comments Unknown Sex and Gender Information Value Date Recorded Sex Assigned at Not on file Legal Sex Female 7:18 AM [employer] Gender Identity Not on file Sexual Orientation Straight 04/11/2019 10 :44 AM CDT documented as of this encounter Plan of Treatment Not on file documented as of this encounter Visit Diagnoses Not on filedocumented in this encounter Additional Health Concerns Infection Onset Date Last Indicated Resolved Time COVID: Suspected 06/05/2022 06/05/2022 06/05/2022 11:59 AM CDT COVID: Suspected 08/04/2022 08/04/2022 08/04/2022 9:19 AM CDT COVID: Suspected 08/04/2022 08/04/2022 08/04/2022 5:31 PM CDT COVID: Suspected 08/30/2022 08/30/2022 08/30/2022 10:33 PM CDT COVID: Suspected 10/11/2022 10/11/2022 10/11/2022 12:04 PM [employer] COVID: Suspected 10/11/2022 10/11/2022 10/11/2022 4:10 PM [employer]ER COVID: Suspected 10/08/2024 10/08/2024 10/08/2024 9:16 AM [employer] documented as of this encounter Care Teams License Inspector Relationship Specialty Start Date End Date Horacio Adams MD PCP - General Internal Medicine 10/17/20 03/28/24 Jose Antonio Bell MD [address] [place] [id number] PCP - General Family Medicine 03/29/24 Klever Pizarro MD [address] [place] [address] [address] [place] [address] Referring Physician Gastroenterology 03/29/24 Gris Haque DO [address] [place] [address] [address] [place] [address] Consulting Physician Obstetrics and Gynecology 03/29/24 documented as of this encounter
--- OUTSIDE RECORDS SUMMARY | 2025-06-07 07:30 | XMS_ITS | Clinical Summary ---
Author Organization [facility] Address [address] [place] [address] Care Team Providers Care Monotype Mechanic Name Role Phone Jose Antonio Bell MD Primary Care Provider [phone] Klever Pizarro MD Unavailable Gris Haque DO Unavailable [phone] Allergies No known active allergies Medications calcium [...] Syringe Ultra-Fine) 1 mL 31 gauge x 5/16 syringeIndicati ons:Vitamin B12 deficiency For monthly vitamin [...] 10/04/2024 Assessment & Plan (10/04/2024 9:04 AM CONSTRUCTION MANAGEMENT INSTRUCTOR): A(n) yearly Essence Enhanced Encounter has been [...] 11/17/2022 Assessment & Plan (11/17/2022 9:24 AM CONSTRUCTION MANAGEMENT INSTRUCTOR): Topical lidocaine patches (on for 12/off for 12) Heat PRN Gentle stretching Will notify us early next week, if not improving will proceed with CT Routine general medical exam ination at a [facility] care facility 10/19/2022 Assessment & Plan (10/19/2022 1:56 PM CONSTRUCTION MANAGEMENT INSTRUCTOR): Needs Shingrix Tdap due 2031 Current on MMG/WWE Has colo/EGD later this month Encouraged 150 min/weekly of moderate intensity activity Limit 1 EtOH drink/daily Insomnia 10/19/2022 Assessment & Plan (10/19/2022 1:58 PM CONSTRUCTION MANAGEMENT INSTRUCTOR): Trial trazodone 25mg HS History of colon polyps 08/19/2022 Overview (08/19/2022): Added automatically from request for surgery [id number] Pure hypercholesterolemia 02/24/2022 Assessment & Plan (02/24/2022 [...] 07/23/2021 Assessment & Plan (01/19/2021 2:22 PM CONSTRUCTION MANAGEMENT INSTRUCTOR): Head CT without contrast given LOC Reviewed brain rest for 2 weeks post concussion Closed fracture of nasal bones 01/19/2021 10/19/2022 Assessment & Plan (01/19/2021 2:22 PM CONSTRUCTION MANAGEMENT INSTRUCTOR): ENT referral Sneeze precautions reviewed Encounters Date Type Department Care Team Description 05/31/2025 Telephone [facility] Primary Care at [address] [phone] Jose Antonio Bell MD Medical Question/Miscellaneous 05/30/2025 9:15 AM CDT Clinical Support [facility] Primary Care at [address] [phone] 05/30/2025 Telephone [facility] Primary Care at [address] [phone] Cheryl Washington MA 05/10/2025 7:25 AM CDT - 05/10/2025 11:59 PM CDT Hospital Encounter [facility] [address] [place] [address] Pure hypercholesterolemia; Family history of coronary artery bypass graft Discharge Disposition: Discharge to home or self care 05/07/2025 Telephone [facility] Primary [facility] at [address] [phone] Jose Antonio Bell MD Insurance Referrals 04/26/2025 8:15 AM CDT Clinical Support [facility] at [address] [phone] Vitamin B12 deficiency (Primary Dx) 04/25/2025 Results Follow-Up [facility] at [address] [phone] Jose Antonio Bell MD Hepatitis B Surface Antigen Blood, Hepatitis B surface antibody (immune status) Blood, Vitamin B12, Additional followed-up results: 8 04/24/2025 9:00 AM CDT Lab [facility] at [address] [phone] 04/24/2025 8:58 AM CDT - 04/24/2025 11:59 PM [place] [address] Need for hepatitis B screening test; Osteopenia, unspecified location; Encounter for vitamin deficiency screening; Screening for thyroid disorder; Pure hypercholesterolemia Discharge Disposition: Discharge to home or self care 04/24/2025 8:15 AM CDT Office Visit [facility] at [address] [phone] Jose Antonio Bell MD Pure hypercholesterolemia (Primary Dx); Osteopenia, unspecified location; Screening for thyroid disorder; Gastroesophageal reflux disease with esophagitis without hemorrhage; SSBE (short-segment Rosario's esophagus); Need for hepatitis B screening test; Encounter for vitamin deficiency screening; Family history of coronary artery bypass graft; Pulmonary nodules from Last 3 Months Immunizations Immunization Administration Dates Next Due Influenza, Quadrivalent, Randi l Culture-based MDCK, Preservative Free, Antibiotic Free, Intramuscular 09/21/2022 Influenza, Quadrivalent, Spl it, Preservative Free, Intramuscular 08/17/2021 Influenza, Trivalent, High D ose, Split, Preservative Free, Intramuscular 01/17/2025 Influenza, Unspecified 10/04/2024(Deferr ed: Patient Refused),06/14/2023(Deferred: Patient Refused) Pro V&V (J&J) SARS-CoV-2 Vaccination 01/20/2021 Moderna SARS-CoV-2 Monovalen t Vaccination (12+ YRS) 10/13/2021 Moderna Sars-cov-2 Bivalent Vaccine 25 mcg/.25 mL (6 YRS-11 YRS)-Blue/Rosado 09/21/2022 Pfizer SARS-CoV-2 Monovalent Vaccination (12+ Yrs) PURPLE 01/20/2021 Pneumococcal Conjugate Pcv20 03/29/2024 Tdap 11/29/2021,11/18/2021 ZOSTER Recombinant 04/17/2025 Surgical History Surgery Date Site/Laterality Comments SECTION 86 and 90 x2 COLONOSCOPY 11/14/2011 - 11/13/2012 Medical History Medical History Date Comments Anxiety Abdominal pain nausea, hematoch ezia Osteopenia MVP (mitral valve prolapse) Esophagitis GERD (gastroesophageal reflux disease) Closed fracture of nasal bones 01/19/2021 Vitamin B12 deficiency 04/25/2025 Family History Medical History Relation Name Comments Heart attack Father C Heart disease Father C Heart disease Maternal Grandfather Cap Heart disease Maternal Grandmother Leticia Cancer Mother EJ Pancreatic cancer Mother EJ Cancer Sister 1 C Pancreatic cancer Sister 1 C had Whippl e Breast cancer Sister 2 Relation Name Status Comments Father C Maternal Grandfather Cap Maternal Grandmother Leticia Mother EJ Sister 1 C Alive Sister 2 Alive Social History Tobacco [...] on file Legal Sex Female 7:18 AM CONSTRUCTION MANAGEMENT INSTRUCTOR Gender Identity Not on file Sexual Orientation Straight 04/11/2019 10 :44 AM CDT 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 Not on file Not on file Not on file Obstetrics History Last Filed Vital Signs Vital Sign Reading [...] 04/24/2025 8:27 AM CDT Plan of Treatment Health Maintenance Due Date Last Done Comments Covid-19 Vaccine ( season) 2024 09/21/2022, 10/13/2021, 01/20/2021, Additional history exists Osteoporosis Screening-Bone Density Scan 10/26/2024 10/26/2022, 10/26/2022 Zoster Vaccine (2 of 2) 06/12/2025 04/17/2025 Influenza Vaccine (#1) 2025 , 09/21/2022, 09/21/2022, Additional history exists Fall Risk Assessment 10/04/2025 10/04/2024, 03/29/20 24 Well Visit 65+ 10/04/2025 10/04/2024, 1204/2022, 08/11/2021, Additional history exists Breast Cancer Screening-Mammogram 10/25/2025 10/25/2024, 10/25/2024, 09/07/2023, Additional history exists Depression Screening 04/24/2026 04/24/2025, 10/04/2024, 03/29/2024 Colon Cancer Screening-Colonoscopy 09/19/2031 08/10/2018 Postponed from 08/10/2023 (Provider's clinical decision) DTaP/Tdap/Td Vaccine (3 - Td or Tdap) 11/29/2031 11/29/2021, 11/18/2021 Colon Cancer Screening-CT Colonography Discontinued 08/10/2018 Colon Cancer Screening-DNA Stool Discontinued 08/10/2018 Colon Cancer Screening-FIT Discontinued 08/10/2018 Colon Cancer Screening-Sigmoidoscopy Discontinued 08/10/2018 Hepatitis C Screening Completed 10/19/2022 Cervical Cancer Screening Discontinued 03/21/2024 Pneumococcal vaccine 65+ Completed 03/29/2024 Hepatitis B Screening Completed 04/24/2025 Procedures Procedure Name Priority Date/Time Associated Diagnosis [...] Read Routine (OP Routine) 10/26/2022 8:30 AM CONSTRUCTION MANAGEMENT INSTRUCTOR Osteopenia, unspecified location HEPATITIS C ANTIBODY Routine 10/19/2022 2:50 PM CONSTRUCTION MANAGEMENT INSTRUCTOR Need for hepatitis C screening test COLONOSCOPY [...] require more aggressive medical targets/therapy and evaluation. Bruce, S, Alex, R, Vick, Wai. Coronary Artery Calcium Score as a Graded Decision Tool. JACC Adv. 2022 Nov, 2 (9) . Christina Barnett, Edith Valencia, et al. 2018 AHA/ACC/AACVPR/AAPA/ABC/ACPM/ADA/AGS/APhA/ASPC/NLA/PCNA guideline on the management of blood cholesterol: a report of the [place] [employer]/[place] [employer] Association Task Force on Clinical Practice Guidelines. J Am Terence Cardiol, 73 (24) (2019), pp. k328-n521 THIS IS AN ELECTRONICALLY VERIFIED FINAL REPORT 05/12/2025 6:20 PM - Electronically signed by Prasad Pimentel M.D. MJ: THI Report ID: [id number] Reading Location: [id number] Procedure Note Prasad Pimentel MD - 05/12/2025 [...] moreaggressive medical targets/therapy and evaluation. Eboni Barrera, Alex R, Wai Hickman. Coronary Artery Calcium Score as aGraded Decision Tool. JACC Adv. 2022 Nov, 2 (9) . Christina Barnett, Edith Valencia, et al. 2018 AHA/ACC/AACVPR/AAPA/ABC/ACPM/ADA/AGS/APhA/ASPC/NLA/PCNA guideline on the management of blood cholesterol: a report of the [place] [employer]/[place] [employer] Association Task Force on Clinical Practice Guidelines. J Am Terence Cardiol, 73 (24) (2019), pp. f491-d246 THIS IS AN ELECTRONICALLY VERIFIED FINAL REPORT 05/12/2025 6:20 PM - Electronically signed by Prasad Pimentel M.D. MJ: THI Report ID: [id number] Reading Location: [id number] Jose Antonio Bell MD IMG CT PROCEDURES [...] of Race in Diagnosing Kidney Disease, JASN 2020). The CKD-EPI equation should not be used for patients with unstable renal function and has not been validated in children and those over 70. Current interpretive data was last reviewed 2021. Blood 04/24/2025 8:58 AM CDT 04/24/2025 4:22 PM CDT us Jose Antonio Bell MD LAB BLOOD ORDERABLES Final Result [facility] [id number] Department [place] [address] * Differential, auto (04/24/2025 8:58 AM CDT) Neutrophil abs 2.48 1.50 - 6.50 K/cumm Imm gran abs 0.02 0.00 - 0.10 K/cumm [facility] Lymphocyte abs 1.81 0.80 - 3.30 K/cumm [facility] Monocyte abs 0.38 0.20 - 0.80 K/cumm [facility] Eosinophil abs 0.15 0.00 - 0.50 K/cumm [facility] Basophil abs 0.09 0.00 - 0.10 K/cumm [facility] Neutrophil pct 50.4 % [facility] Comment: Interpretive Data Percent cell count reference ranges are not reported, since discordance with absolute values may lead to misinterpretation of CBC data. Current Interpretive Data was last revised on 2018. Imm gran pct 0.4 % [facility] Comment: Interpretive Data Percent cell count reference ranges are not reported, since discordance with absolute values may lead to misinterpretation of CBC data. Current Interpretive Data was last revised on 2018. Lymphocyte pct 36.7 % [facility] Comment: Interpretive Data Percent cell count reference ranges are not reported, since discordance with absolute values may lead to misinterpretation of CBC data. Current Interpretive Data was last revised on 2018. Monocyte pct 7.7 % [facility] Comment: Interpretive Data Percent cell count reference ranges are not reported, since discordance with absolute values may lead to misinterpretation of CBC data. Current Interpretive Data was last revised on 2018. Eosinophil pct 3.0 % [facility] Comment: Interpretive Data Percent cell count reference ranges are not reported, since discordance with absolute values may lead to misinterpretation of CBC data. Current Interpretive Data was last revised on 2018. Basophil pct 1.8 % [facility] Comment: Interpretive Data Percent cell count reference ranges are not reported, since discordance with absolute values may lead to misinterpretation of CBC data. Current Interpretive Data was last revised on 2018. Blood 04/24/2025 8:58 AM CDT 04/24/2025 4:51 PM CDT Jose Antonio Bell MD LAB BLOOD ORDERABLES Final Result Performing Organization Address [facility] Co de Phone Number NADINE RAMACHANDRAN [phone] [facility] [employer] [place], [place] [phone] * Thyroid Function [place] (04/24/2025 8:58 AM CDT) Pathologist [facility] TSH 1.83 0.30 - 4.20 mcIUnit/mL Blood 04/24/2025 8:58 AM CDT 04/24/2025 4:22 PM CDT Jose Antonio Bell MD LAB BLOOD ORDERABLES Final Result Performing Organization Address [facility] de Phone Number NADINE RAMACHANDRAN [phone] [address] [facility] [place] [address] * (ABNORMAL) CBC with auto differential (04/24/2025 8:58 AM CDT) Pathologist [facility] WBC 4.93 3.80 - 9.90 K/cumm Hgb 13.8 11.9 - 15.5 g/dL [facility] Hct 43.7 35.6 - 45.5 % [facility] Plt 304 150 - 400 K/cumm [facility] MPV 9.3 9.1 - 12.3 fL [facility] RBC 4.58 3.90 - 5.20 M/cumm [facility] MCV 95.4 81.3 - 96.4 fL [facility] MCH 30.1 27.1 - 33.3 pg [facility] MCHC 31.6(L) 32.3 - 35.7 g/dL [facility] RDW CV 13.3 11.1 - 14.9 % [facility] RDW SD 46.5 35.7 - 48.1 fL [facility] NRBC abs 0.00 0.00 - 0.01 K/cumm [facility] Blood 04/24/2025 8:58 AM CDT 04/24/2025 4:22 PM CDT Jose Antonio Bell MD LAB BLOOD ORDERABLES Final Result Performing Organization Address [facility] Co de Phone Number NADINE [phone] [address] Department [place] [place] [address] * Hepatitis B core antibody, total Blood (04/24/2025 8:58 AM CDT) [facility] Hep B core IgG/IgM Nonreactive Nonreactive Comment:Testing performed by : [facility], [address] [facility], [place]., [address] Blood 04/24/2025 8:58 AM CDT 04/25/2025 10:06 AM CDT Jose Antonio Bell MD LAB MICROBIOLOGY - GENERAL ORDERABLES Final Result Performing Organization Address [facility] Co de Phone Number [facility] [address] [address] [place] [address] * Vitamin D 25 hydroxy (04/24/2025 8:58 AM CDT) Pathologist [facility] Vitamin D 25-OH 51 30 - 80 ng/mL Blood 04/24/2025 8:58 AM CDT 04/24/2025 4:23 PM CDT Jose Antonio Bell MD LAB BLOOD ORDERABLES Final Result Performing Organization Address [facility] Co de Phone Number NADINE [phone] [address] Department [place] [address] * Hepatitis B surface antibody (immune status) Blood (04/24/2025 8:58 AM CDT) [facility] HBsAb (immune status) Nonreactive Comment: [...] GENERAL ORDERABLES Final Result Performing Organization Address [facility] Co de Phone Number NADINE [phone] [facility] [place] [address] * Hepatitis B Surface Antigen Blood (04/24/2025 8:58 AM CDT) Pathologist [facility] HepBsAg Nonreactive Nonreactive Blood 04/24/2025 8:58 AM CDT 04/24/2025 4:23 PM CDT Jose Antonio Bell MD LAB MICROBIOLOGY - GENERAL ORDERABLES Final Result Performing Organization Address [facility] Co de Phone Number NADINE [phone] [facility] [place] [address] * (ABNORMAL) Vitamin B12 (04/24/2025 8:58 AM CDT) [facility] Vitamin B12 217(L) 230 - 1,250 pg/mL Blood 04/24/2025 8:58 AM CDT 04/24/2025 4:22 PM CDT Jose Antonio Bell MD LAB BLOOD ORDERABLES Final Result Performing Organization Address [facility] Co de Phone Number NADINE [phone] Department [place] [address] * (ABNORMAL) Lipid panel (04/24/2025 8:58 AM [...] on 2018. Triglycerides 145 <=149 mg/dL NADINE RAMACHANDRAN Comment: Interpretive Data Ages < or = [...] on 2018. HDL 55 >=40 mg/dL NADINE RAMACHANDRAN Comment: Interpretive Data Ages < or = [...] 2018. LDL, calculated 150(H) <=129 mg/dL NADINE RAMACHANDRAN Comment: Interpretive Data Ages < or = 19 years Acceptable: <110 mg/dL Borderline high: 110-129 mg/dL High: >or= 130 mg/dL Ages > or = 20 years Optimal: <100 mg/dL Near optimal: 100-129 mg/dL Borderline high: 130-159 mg/dL High: >160 mg/dL Calculated using the Tej LDL-C estimating equation. This equation was implemented [...] revised on 2024. Non-HDL Cholesterol 176 mg/dL NADINE RAMACHANDRAN Comment: Interpretive Data Ages < or = [...] LAB BLOOD ORDERABLES Final Result NADINE RAMACHANDRAN [address] Department [place] [address] * Comprehensive metabolic panel (04/24/2025 8:58 AM CDT) Sodium 139 135 - 145 mmol/L Potassium, pl 4.1 3.3 - 4.9 mmol/L [facility] Chloride 103 97 - 110 mmol/L [facility] CO2 24 22 - 32 mmol/L [facility] Anion gap 12 2 - 15 mmol/L [facility] BUN 7 6 - 25 mg/dL [facility] Creatinine 0.63 0.60 - 1.10 mg/dL [facility] Glucose 90 70 - 199 mg/dL [facility] Comment: Interpretive Data Fasting glucose >/= 126 [...] classification and Diagnosis of Diabetes Diabetes Care 202; 46: S19-S40. Current interpretive data was last revised 2022. Calcium 9.3 8.5 - 10.3 mg/dL [facility] Bilirubin, total 0.3 0.1 - 1.2 mg/dL [...] Bell MD LAB BLOOD ORDERABLES Final Result [facility] [address] [address] Department [place] [address] * HM PAP SMEAR WITH HPV (03/21/2024 8:56 AM CDT) Historical Provider HEALTH MAINTENANCE Final Result * Dexa Axial Skeleton Bone Density 1 or 2 Site (10/26/2022 8:30 AM CONSTRUCTION MANAGEMENT INSTRUCTOR) Anatomical Region Laterality Modality Body N/A Digital Radiogra phy 10/26/2022 9:52 AM CONSTRUCTION MANAGEMENT INSTRUCTOR Impressions 10/26/2022 1:29 PM CONSTRUCTION MANAGEMENT INSTRUCTOR 1. The bone mineral density of the [...] Berrios MD, Ph.D Narrative 10/26/2022 1:29 PM CONSTRUCTION MANAGEMENT INSTRUCTOR BONE DENSITOMETRY OF THE SPINE AND HIP [...] Electronically signed by: Heather Berrios MD, Ph.D us Horacio Adams MD IMG DXA PROCEDURES Final Resu lt * Hepatitis C antibody (10/19/2022 2:50 PM CONSTRUCTION MANAGEMENT INSTRUCTOR) Hep C Ab <0.1 0.0 - 0.9 s/co ratio [facility] - 01 Comment: Negative: < 0.8 Indeterminate: 0.8 - 0.9 Positive: > 0.9 HCV antibody alone does not differentiate between previous resolved infection and active infection. The CDC and current clinical guidelines recommend that a positive HCV antibody result be followed up with an HCV RNA test to support the diagnosis of acute HCV infection. [facility] offers Hepatitis C Virus (HCV) RNA, Diagnosis, BRUCE (289420) and Hepatitis C Virus (HCV) Antibody with reflex to Quantitative Real-time PCR ([id number]). Blood 10/19/2022 2:50 PM CONSTRUCTION MANAGEMENT INSTRUCTOR 10/19/2022 Narrative [facility] - 10/20/2022 9:11 AM CONSTRUCTION MANAGEMENT INSTRUCTOR Performed at: 01 - [address] [id number] Reservations Specialist: Zachariah Bah PhD, Phone: [phone] us Tara Hickman NP LAB MICROBIOLOGY - GENER AL ORDERABLES Final Result [facility] - * COLONOSCOPY (08/10/2018 9:15 AM CDT) Anatomical Region Laterality Modality Other Narrative Procedure Note Rojelio Gonzalez MD - 08/10/2018 9:15 AM CDT ENDOSCOPY LAB Patient Name: Danitza Lackey Procedure Date: 08/10/2018 9:15 AM Date of : 1960 Admit Type: Outpatient Age: 58 Gender: Female Attending MD: Rojelio Gonzalez M.D. Room: [place] [address] Note Status: Finalized Procedure Date No Time: [...] Thescope was passed under direct vision. The [id number] introduced through the anus and advanced to the thececum, identified by appendiceal orifice and ileocecal valve.The colonoscopy was performed without difficulty. Thepatient tolerated the procedure well. The quality of the bowel preparation was evaluated using the BBPS ([place] Bowel Preparation Scale) with scores of: Right [...] this procedure please call my office at [phone] to speak to my nurses. After hours and evenings please call [phone] and speak to the GI fellow telecommunications cable jointer. Please tell them that Dr. Gonzalez did [...] Jenkins RN in the GI office at [phone] for your final pathology results in 7days. Attending Participation: I personally performed the entire procedure. Electronically Signed By: Rojelio Gonzalez M.D. Rojelio Gonzalez M.D. 08/10/2018 10:14:35 AM Number of Addenda: 0 Note Initiated On: 08/10/2018 9:15 AM Rojelio Gonzalez MD ENDOSCOPY PROCEDURES Final Result from Last 3 Months or Most Recently Relevant to Health Maintenance Insurance AETNA SIG [id number] UHC MEDICARE ADVANTAGE [facility] MEDICARE ADVANTAGE Advance Directives For more information, please contact: [phone] * Full Code (Latest Code Status on File) Date Activated Date Inactivated Comments 08/10/2018 8:21 AM 08/10/2018 1:41 PM Care Teams Monotype Mechanic Relationship Specialty Start Date End Date Jose Antonio Bell MD [address] [place] [address] PCP - General Family Medicine 03/29/24 Klever Pizarro MD [address] [facility] [address] [place], [place] [id number] Referring Physician Gastroenterology 03/29/24 Gris Haque DO [address] [facility] [address] [place] [address] Consulting Physician Obstetrics and Gynecology 03/29/24
== END 2025-06-07 07:23 | disposition home or self-care (01) ==
LOC: ANHIMG 07:27
PROVIDERS: PCP Family Medicine; Visit Provider Family Medicine
DX: M81.0 Age-related osteoporosis without current pathological fracture (principal); M85.89 Other specified disorders of bone density and structure, multiple sites
CPT/HCPCS: 77080